=== PATIENT | male | born 1950 | race Caucasian/White ===

== ENCOUNTER 2016-12-04 10:08 | Inpatient (IN) | payer OTHER, MEDICARE ==
--- NOTE | 2016-12-04 10:49 | PDOC ---
History of Present Illness - History of Present Illness Initial Comments: 12/04/16 11:18 The patient is a 66 year old male, with a significant past medical history of hypertension, diabetes (reportedly takes pills), hyperlipidemia, and psoriasis , who presents to the emergency department with progressive onset of orthopnea and exertional dyspnea since yesterday. The patient reports he can not take deep breaths. He reports his dyspnea is worse at night when lying flat and alleviated slightly with sitting upright. He states his orthopnea keeps me up at night. He denies cough. He also reports bilateral lower extremity swelling for the past 2 months and reportedly took water pills which were prescribed by his PCP, Dr. De Anda. Secondarily, he reports feeling bloated to the upper abdominal region. He also reports some mild nausea. He denies chest pain, headache and dizziness. He denies fever, chills, vomit, diarrhea and constipation. He denies dysuria, frequency, urgency and hematuria. Allergies: penicillins Past surgical history: inguinal hernia repair Social history: nonsmoker. PCP: Dr. De Anda <Alejandra Hartman - Last Filed: 12/04/16 11:35> <Lenka Dempsey - Last Filed: 12/04/16 13:46> - General Chief Complaint: Shortness of Breath Stated Complaint: SOB Time Seen by Provider: 12/04/16 10:31 Past History <Alejandra Hartman - Last Filed: 12/04/16 11:35> - Past Medical History Diabetes: Yes HTN: Yes - Surgical History Abdominal Surgery: Yes (hernia repair) - Suicide/Smoking/Psychosocial Hx Smoking History: Never smoked Information on smoking cessation initiated: No Hx Alcohol Use: No Drug/Substance Use Hx: No Substance Use Type: None <Lenka Dempsey - Last Filed: 12/04/16 13:46> - Past Medical History Allergies/Adverse Reactions: Allergies Allergy/AdvReac Type Severity Reaction Status Date / Time Penicillins Allergy Verified 12/04/16 10:19 Home Medications: Ambulatory Orders Glyburide/Metformin HCl [Glyburide-Metformin 5-500 mg] 1 each PO BID 12/04/16 Lisinopril 10 mg PO DAILY 12/04/16 Oxybutynin Chloride [Ditropan Xl] 5 mg PO DAILY 12/04/16 Simvastatin [Zocor -] 20 mg PO HS 12/04/16 Tamsulosin HCl [Flomax] 0.4 mg PO DAILY 12/04/16 Review of Systems - Review of Systems Able to Perform ROS?: Yes Comments:: 12/04/16 11:19 GENERAL/CONSTITUTIONAL: No fever or chills. No weakness. HEAD, EYES, EARS, NOSE AND THROAT: No change in vision. No ear pain or discharge. No sore throat. GASTROINTESTINAL: (+) nausea and upper abdominal bloating, no vomiting, diarrhea or constipation. GENITOURINARY: No dysuria, frequency, or change in urination. CARDIOVASCULAR: No chest pain or shortness of breath. RESPIRATORY: (+) exertional dyspnea, orthopnea, No cough, wheezing, or hemoptysis. MUSCULOSKELETAL: (+) lower extremity edema. No joint or muscle pain. No neck or back pain. SKIN: No rash NEUROLOGIC: No headache, vertigo, loss of consciousness, or change in strength/ sensation. ENDOCRINE: No increased thirst. No abnormal weight change. HEMATOLOGIC/LYMPHATIC: No anemia, easy bleeding, or history of blood clots. ALLERGIC/IMMUNOLOGIC: No hives or skin allergy. <Alejandra Hartman - Last Filed: 12/04/16 11:35> *Physical Exam - Vital Signs Last Vital Signs Temp Pulse Resp BP Pulse Ox 98.4 F 109 H 19 158/102 94 L 12/04/16 10:16 12/04/16 10:16 12/04/16 10:16 12/04/16 10:16 12/04/16 10:16 - Physical Exam Comments: 12/04/16 11:20 Constitutional: Awake, alert, oriented. No acute distress. Head: Normocephalic. Atraumatic Eyes: PERRL. EOMI. Conjunctivae are not pale. ENT: Mucous membranes are moist and intact. Posterior pharynx without exudates or erythema. Uvula midline. Neck: Supple. Full ROM. No lymphadenopathy. Cardiovascular: Regular rate. Regular rhythm. S1, S2 regular. Distal pulses are 2+ and symmetric. Pulmonary/Chest: (+) soft rales. No evidence of respiratory distress. Clear to auscultation bilaterally No wheezing or rhonchi. Abdominal: (+) obese. Soft and non-distended. There is no tenderness. No rebound, guarding or rigidity. No organomegaly. No palpable masses. Good bowel sounds. Back: No CVA tenderness. Musculoskeletal: (+) 2+ pitting edema to bilateral LE. No cyanosis. No clubbing. Full range of motion in all extremities. No calf tenderness. Radial/ pedal pulses are intact and 2+ bilaterally Skin: Skin is warm and dry. No petechiae. No purpura. Neurological: Alert and oriented to person, place, and time. Cranial nerves II -XII are grossly intact. Normal speech. Strength is grossly symmetric. No sensory deficits. Psychiatric: Good eye contact. Normal interaction, affect and behavior. <Alejandra Hartman - Last Filed: 12/04/16 11:35> - Vital Signs Last Vital Signs Temp Pulse Resp BP Pulse Ox 98.4 F 109 H 19 158/102 94 L 12/04/16 10:16 12/04/16 10:16 12/04/16 10:16 12/04/16 10:16 12/04/16 10:16 <Lenka Dempsey - Last Filed: 12/04/16 13:46> Heart Score/ECG Review - ECG Intrepretation Comment:: 12/04/16 11:48 sinus at 95, LBBB, no acute st/t wave findings <Lenka Dempsey - Last Filed: 12/04/16 13:46> ED Treatment Course - LABORATORY CBC & Chemistry Diagram: 12/04/16 11:30 12/04/16 11:38 <Lenka Dempsey - Last Filed: 12/04/16 13:46> Medical Decision Making - Medical Decision Making 12/04/16 11:15 a/p: 66yo male with sob -PND, orthopnea, LE swelling -suspect new onset chf -labs -monitor -iv lasix -admission -cardio consult 12/04/16 13:46 pt with LBBB on ekg, labs reviewed. case discussed with hospitalist who accepts pt to service. consult placed to cardiology. <Lenka Dempsey - Last Filed: 12/04/16 13:46> *DC/Admit/Observation/Transfer - Attestations Scribe Attestion: 12/04/16 11:20 Documentation prepared by Alejandra Hartman, acting as biomedical engineering internship for Lenka Dempsey MD <Alejandra Hartman - Last Filed: 12/04/16 11:35> - Discharge Dispostion Admit: Yes - Attestations Physician Attestion: 12/04/16 12:36 I, Dr. Lenka Dempsey, DO, attest that this document has been prepared under my direction and personally reviewed by me in its entirety. I further attest, that it accurately reflects all work, treatment, procedures and medical decision -making performed by me. <Lenka Dempsey - Last Filed: 12/04/16 13:46> Diagnosis at time of Disposition: Edema, Orthopnea - Discharge Dispostion Condition at time of disposition: Fair
[2016-12-04] MEDS ORDERED: FUROSEMIDE 40 MG/4 ML INJECTABLE VIAL IVPUSH ONE ×2 (11:12→18:00)
[2016-12-04 11:53] LABS: BASOPHIL 0.8 % (0-2.0); EOSINOPHIL 1.6 % (0-4.5); MCH 29.3 pg (25.7-33.7); MCHC 32.9 g/dl (32.0-35.9); MEAN CELL VOLUME 88.8 fl (80-96); NEUTROPHILS 69.7 % (42.8-82.8); PLATELET COUNT 230 K/MM3 (134-434); RDW 13.2 % (11.9-15.9); WHITE BLOOD COUNT 8.3 K/mm3 (4.0-10.0)
[2016-12-04 12:22] LABS: ALBUMIN 3.2 g/dl (3.4-5.0); ANION GAP 7 (8-16); BILIRUBIN,TOTAL 0.6 mg/dL (0.2-1.0); CALCIUM 8.5 mg/dL (8.5-10.1); CO2 27 mmol/L (21-32); GLUCOSE,RANDOM 196 mg/dL (74-106); SGOT/AST 10 U/L (15-37); SGPT/ALT 24 U/L (12-78); TOT PROT 6.5 g/dl (6.4-8.2)
[2016-12-04 12:24] LABS: ALK PHOS 81 U/L (45-117); CPK 97 IU/L (39-308); TROPONIN I 0.03 ng/ml (0.00-0.05)
[2016-12-04] MEDS ORDERED: FUROSEMIDE 40 MG/4 ML INJECTABLE VIAL ONE (12:24)
--- NOTE | 2016-12-04 13:23 | HP ---
CHIEF COMPLAINT: Shortness of breath. PCP: Dr. De Anda HISTORY OF PRESENT ILLNESS: 66 yo M with a PMHx of HTN , DM2 , who presented to the ER due to progressively worsening SOB. He has had worsening shortness of breath for the past two months which has gotten to the point were he becomes SOB with minimal exertion. He had seen his PCP 3 weeks prior to ER visit and given presumably Lasix but patient discontinued on his own secondary to frequent urination. He also endorses orthopnea (sleeps w/ 3 pillows), and paroxysmal nocturnal dyspnea. 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 He endorses high salt intake. He mentions that he may have had an Echo done before but that was almost 3 years ago. Denies CP,POOLE, Palpitations, abdominal pain, fever, chills, N/V. ER course: * IVP Lasix 40mg. * EKG shows NSR w/ LBBB, unknown prior. * CXR shows pulmonary congestion and pleural effusions. Recent Travel: Denies PAST MEDICAL HISTORY: HTN, NIDDM, HLD, Psoriasis, BPH PAST SURGICAL HISTORY: Hernia repair Social History: Smoking: Denies Alcohol: Occasional Drugs: Denies Family History: Allergies Penicillins Allergy (Verified 12/04/16 10:19) HOME MEDICATIONS: REVIEW OF SYSTEMS CONSTITUTIONAL: Absent: fever, chills, diaphoresis, generalized weakness, malaise, loss of appetite, weight change HEENT: Absent: rhinorrhea, nasal congestion, throat pain, throat swelling, difficulty swallowing, mouth swelling, ear pain, eye pain, visual changes CARDIOVASCULAR: Absent: chest pain, syncope, palpitations, irregular heart rate, lightheadedness , RESPIRATORY: shortness of breath, dyspnea with exertion, orthopnea, Absent: cough, wheezing, stridor, hemoptysis GASTROINTESTINAL: Absent: abdominal pain, abdominal distension, nausea, vomiting, diarrhea, constipation, melena, hematochezia GENITOURINARY: Absent: dysuria, frequency, urgency, hesitancy, hematuria, flank pain, genital pain MUSCULOSKELETAL: Absent: myalgia, arthralgia, joint swelling, back pain, neck pain SKIN: Absent: rash, itching, pallor HEMATOLOGIC/IMMUNOLOGIC: Absent: easy bleeding, easy bruising, lymphadenopathy, frequent infections ENDOCRINE: Absent: unexplained weight gain, unexplained weight loss, heat intolerance, cold intolerance NEUROLOGIC: Absent: headache, focal weakness or paresthesias, dizziness, unsteady gait, seizure, mental status changes, bladder or bowel incontinence PSYCHIATRIC: Absent: anxiety, depression, suicidal or homicidal ideation, hallucinations. PHYSICAL EXAMINATION GENERAL: AAOx3, NAD HEAD: NC/AT EYES: PERRLA,EOMI sclera anicteric, conjunctiva clear. No lid lag. EARS, NOSE, THROAT: Moist mucous membranes. NECK: supple ,No JVD LUNGS: Fine crackle in bilateral lung alexander, No wheezing or rhonchi. HEART: RRR. no M/G/R ABDOMEN: Soft,obese, mild supra-pubic tenderness, not distended, normoactive bowel sounds, no guarding, no rebound, no masses. UPPER EXTREMITIES: 2+ pulses, warm, well-perfused. No cyanosis. No clubbing. No peripheral edema. LOWER EXTREMITIES: 2+ pulses, warm, well-perfused. No calf tenderness.1+ pitting edema NEUROLOGICAL: Cranial nerves II-XII intact. Normal speech. PSYCHIATRIC: Cooperative. Good eye contact. Appropriate mood and affect. SKIN: Warm, dry, normal turgor, no rashes or lesions noted, normal capillary refill. ASSESSMENT/PLAN: 66 yo M with a PMHx of HTN , DM2 , who presented to the ER due to progressively worsening SOB admitted to telemetry for acute CHF exacerbation. Problem List - Problem (1) CHF (congestive heart failure) Assessment/Plan: * Admit to telemetry * Lasix 40 IV BID * daily weights. * I/O's * Sodium restricted diet * Cardiology consult * Echo pending. (2) HTN (hypertension) Assessment/Plan: * Carvedilol (Coreg -) 3.125 mg PO BID * Lisinopril (Prinivil) 20 mg PO DAILY * Spironolactone (Aldactone -) 25 mg PO DAILY STEPH (3) DM II (diabetes mellitus, type II), controlled Assessment/Plan: * ADA diet * BGM ACHS * ISS ACHS (4) Psoriasis Assessment/Plan: * Quiesent at this time (5) BPH (benign prostatic hyperplasia) Assessment/Plan: * Continue Flomax (6) DVT prophylaxis Assessment/Plan: * Lovenox 40mg SQ daily. Visit type - Emergency Visit Emergency Visit: Yes ED Registration Date: 12/04/16 Care time: The patient presented to the Emergency Department on the above date and was hospitalized for further evaluation of their emergent condition. - New Patient This patient is new to me today: Yes Date on this admission: 12/05/16 - Critical Care Critical Care patient: No
--- NOTE | 2016-12-04 14:35 | HP ---
<Lizet Martinez - Last Filed: 12/04/16 16:23> CHIEF COMPLAINT: Shortness of Breath HISTORY OF PRESENT ILLNESS: Patient is a 66yo M with a PMHx of HTN (on Lisinopril), DM2 (on metformin/ glyburide), who presented to the ER due to progressively worsening SOB. For the past 2 months, patient noted his SOB has gotten worse to the point of him getting SOB with ordinary activity (putting on clothes). He also endorses orthopnea (sleeps w/ 3 pillows), and paroxysmal nocturnal dyspnea. He denies cough, fevers, chills, viral URI symptoms. He denies CP, palpitations. He states he went to his PMD's office who prescribed him a "water pill" which made him feel better, but he stopped taking it due to frequent urination. He has no recorded history of CHF, but states a prior echocardiogram 3 years ago was "normal". The patient endorses compliance with his BP meds. In the ER the patient was afebrile, with elevated BP in 150s, tachy in the 100s , O2 of 94 on RA. He was found to have crackles on lung exam and was given IVP Lasix 40mg. He has since been urinating and has felt better. EKG shows NSR w/ LBBB, unknown prior. He does not have SOB on rest. CXR shows pulmonary congestion and pleural effusions. Recent Travel: Denies PAST MEDICAL HISTORY: HTN, NIDDM, HLD, Psoriasis, BPH PAST SURGICAL HISTORY: Hernia repair Social History: Smoking: Denies Alcohol: Occasional Drugs: Denies Allergies Penicillins Allergy (Verified 12/04/16 10:19) HOME MEDICATIONS: Home Medications Medication Instructions Recorded Glyburide/Metformin HCl 1 each PO BID 12/04/16 [Glyburide-Metformin 5-500 mg] Lisinopril 10 mg PO DAILY 12/04/16 Oxybutynin Chloride [Ditropan Xl] 5 mg PO DAILY 12/04/16 Simvastatin [Zocor -] 20 mg PO HS 12/04/16 Tamsulosin HCl [Flomax] 0.4 mg PO DAILY 12/04/16 REVIEW OF SYSTEMS CONSTITUTIONAL: Absent: fever, chills, diaphoresis, generalized weakness, malaise, loss of appetite, weight change HEENT: Absent: rhinorrhea, nasal congestion, throat pain, throat swelling, difficulty swallowing, mouth swelling, ear pain, eye pain, visual changes CARDIOVASCULAR: Absent: chest pain, syncope, palpitations, irregular heart rate, lightheadedness , peripheral edema RESPIRATORY: Absent: cough, shortness of breath, wheezing, stridor, hemoptysis Present: dyspnea on exertion, orthopnea GASTROINTESTINAL: Absent: abdominal pain, abdominal distension, nausea, vomiting, diarrhea, constipation, melena, hematochezia GENITOURINARY: Absent: dysuria, frequency, urgency, hesitancy, hematuria, flank pain, genital pain MUSCULOSKELETAL: Absent: myalgia, arthralgia, joint swelling, back pain, neck pain SKIN: Absent: rash, itching, pallor HEMATOLOGIC/IMMUNOLOGIC: Absent: easy bleeding, easy bruising, lymphadenopathy, frequent infections ENDOCRINE: Absent: unexplained weight gain, unexplained weight loss, heat intolerance, cold intolerance NEUROLOGIC: Absent: headache, focal weakness or paresthesias, dizziness, unsteady gait, seizure, mental status changes, bladder or bowel incontinence PSYCHIATRIC: Absent: anxiety, depression, suicidal or homicidal ideation, hallucinations. Vital Signs Temperature 98.4 F 12/04/16 10:16 Pulse Rate 92 H 12/04/16 12:20 Respiratory Rate 18 12/04/16 12:20 Blood Pressure 151/96 12/04/16 12:20 O2 Sat by Pulse Oximetry (%) 94 L 12/04/16 12:20 PHYSICAL EXAMINATION GEN: AAOx3, NAD, Lying in bed comfortably, no SOB at rest HEENT: PERRLA, EOMi, no cervical LAD, no JVD noted on exam CV: S1, S2, RRR, no murmurs LUNG: interspersed crackles throughout lungs, good inspiratory effort ABD: Obese, soft, discomfort in suprapubic region MSK: +1 bilateral pedal edema, no erythema, normal ROM, psoriatic lesions on dorsum of fingers NEURO: Decreased sensation in BLLE, no MSK deficits Laboratory Last Values WBC 8.3 K/mm3 (4.0-10.0) 12/04/16 11:30 RBC 5.29 M/mm3 (4.00-5.60) 12/04/16 11:30 Hgb 15.5 GM/dL (11.7-16.9) 12/04/16 11:30 Hct 47.0 % (35.4-49) 12/04/16 11:30 MCV 88.8 fl (80-96) 12/04/16 11:30 MCH 29.3 pg (25.7-33.7) 12/04/16 11:30 MCHC 32.9 g/dl (32.0-35.9) 12/04/16 11:30 RDW 13.2 % (11.9-15.9) 12/04/16 11:30 Plt Count 230 K/MM3 (134-434) 12/04/16 11:30 MPV 10.0 fl (7.5-11.1) 12/04/16 11:30 Neutrophils % 69.7 % (42.8-82.8) 12/04/16 11:30 Lymphocytes % 21.4 % (8-40) 12/04/16 11:30 Monocytes % 6.5 % (3.8-10.2) 12/04/16 11:30 Eosinophils % 1.6 % (0-4.5) 12/04/16 11:30 Basophils % 0.8 % (0-2.0) 12/04/16 11:30 Sodium 142 mmol/L (136-145) 12/04/16 11:38 Potassium 4.4 mmol/L (3.5-5.1) 12/04/16 11:38 Chloride 108 mmol/L (98-107) H 12/04/16 11:38 Carbon Dioxide 27 mmol/L (21-32) 12/04/16 11:38 Anion Gap 7 (8-16) L 12/04/16 11:38 BUN 13 mg/dL (7-18) 12/04/16 11:38 Creatinine 1.0 mg/dL (0.7-1.3) 12/04/16 11:38 Creat Clearance w eGFR > 60 (>60) 12/04/16 11:38 Random Glucose 196 mg/dL (74-106) H 12/04/16 11:38 Calcium 8.5 mg/dL (8.5-10.1) 12/04/16 11:38 Magnesium 2.0 mg/dL (1.8-2.4) 12/04/16 11:38 Total Bilirubin 0.6 mg/dL (0.2-1.0) 12/04/16 11:38 AST 10 U/L (15-37) L 12/04/16 11:38 ALT 24 U/L (12-78) 12/04/16 11:38 Alkaline Phosphatase 81 U/L (45-117) 12/04/16 11:38 Creatine Kinase 97 IU/L (39-308) 12/04/16 11:38 Troponin I 0.03 ng/ml (0.00-0.05) 12/04/16 11:38 B-Natriuretic Peptide 755.61 pg/ml (5-125) H 12/04/16 11:30 Total Protein 6.5 g/dl (6.4-8.2) 12/04/16 11:38 Albumin 3.2 g/dl (3.4-5.0) L 12/04/16 11:38 Active Medications Generic Name Dose Route Start Last Admin Trade Name Freq PRN Reason Stop Dose Admin Enoxaparin Sodium 40 mg 12/05/16 10:00 Lovenox - SQ DAILY [facility] Furosemide 40 mg 12/05/16 06:00 Lasix Injection - IVPUSH BID@0600,1400 STEPH Furosemide 40 mg 12/04/16 18:00 Lasix Injection - IVPUSH 12/04/16 18:01 ONCE ONE Influenza Virus Vaccine Quadrival 60 mcg 12/04/16 15:39 Flulaval Quad [id number] IM 12/04/16 15:40 .ONCE ONE Insulin Aspart 0 vial 12/04/16 16:30 Novolog Vial Sliding Scale - SQ TIDAC [facility] Protocol Lisinopril 10 mg 12/05/16 10:00 Prinivil PO DAILY [facility] Non-Formulary Medication 5 mg 12/05/16 10:00 Oxybutynin Chloride [Ditropan Xl] PO DAILY [facility] Non-Formulary Medication 20 mg 12/05/16 10:00 Simvastatin PO DAILY [facility] Pneumococcal 13-Valent Conj Vacc 0.5 ml 12/04/16 15:39 Prevnar 13 Syringe - IM 12/04/16 15:40 .ONCE ONE Tamsulosin HCl 0.4 mg 12/05/16 10:00 Flomax - PO DAILY [facility] ASSESSMENT/PLAN: Patient is a 66yo M with a PMHx of HTN (on Lisinopril), DM2 (on metformin/ glyburide), who presented to the ER due to progressively worsening SOB, likely due to new onset CHF exacerbation # New Onset CHF Exacerbation - 2/2 high salt diet, HTN, pt states prior echo 3 years ago was normal - IV Lasix 40mg BID, Echo, strict I&O, daily weights, clarify w/ PMD about echo and "water pill", nutrition consult, TSH, Cardiology on board, unlikely ACS but will trend troponin # Mild Suprapubic Tenderness - could be 2/2 bladder distension from Lasix + BPH - Bladder scan to r/o retention, if >200 will insert boateng, also sent UA to r /o infectious etiology # Hx of HTN - Continue Lisinopril 10mg # Hx of DM2 - ISS + BGMs ACHS, hold home oral meds, A1c ordered for tmrw # Hx of HLD - Continue statin, lipid profile # Hx of BPH - Continue flomax # Hx of Psoriasis - On no meds, topical cream if needed # Hx of Overactive Bladder - Continue oxybutynin # FEN - No fluids, elect wnl, renal diet # PPX - Lovenox SQ daily (normal renal function), PT ordered # Dispo - Monitor on tele, await results of echo, continue diuresis d/w Dr. Marcus and Dr. Kylah Martinez MD - PGY1 Internal Medicine Visit type - Emergency Visit Emergency Visit: Yes ED Registration Date: 12/04/16 Care time: The patient presented to the Emergency Department on the above date and was hospitalized for further evaluation of their emergent condition. - New Patient This patient is new to me today: Yes Date on this admission: 12/04/16 - Critical Care Critical Care patient: No <Ángel Marcus - Last Filed: 12/04/16 17:16> CHIEF COMPLAINT: PCP: HISTORY OF PRESENT ILLNESS: ER course was notable for: (1) (2) (3) Recent Travel: PAST MEDICAL HISTORY: PAST SURGICAL HISTORY: Social History: Smoking: Alcohol: Drugs: Family History: Allergies Penicillins Allergy (Verified 12/04/16 10:19) HOME MEDICATIONS: Home Medications Medication Instructions Recorded Glyburide/Metformin HCl 1 each PO BID 12/04/16 [Glyburide-Metformin 5-500 mg] Lisinopril 10 mg PO DAILY 12/04/16 Oxybutynin Chloride [Ditropan Xl] 5 mg PO DAILY 12/04/16 Simvastatin [Zocor -] 20 mg PO DAILY 12/04/16 Tamsulosin HCl [Flomax] 0.4 mg PO DAILY 12/04/16 REVIEW OF SYSTEMS CONSTITUTIONAL: Absent: fever, chills, diaphoresis, generalized weakness, malaise, loss of appetite, weight change HEENT: Absent: rhinorrhea, nasal congestion, throat pain, throat swelling, difficulty swallowing, mouth swelling, ear pain, eye pain, visual changes CARDIOVASCULAR: Absent: chest pain, syncope, palpitations, irregular heart rate, lightheadedness , peripheral edema RESPIRATORY: Absent: cough, shortness of breath, dyspnea with exertion, orthopnea, wheezing, stridor, hemoptysis GASTROINTESTINAL: Absent: abdominal pain, abdominal distension, nausea, vomiting, diarrhea, constipation, melena, hematochezia GENITOURINARY: Absent: dysuria, frequency, urgency, hesitancy, hematuria, flank pain, genital pain MUSCULOSKELETAL: Absent: myalgia, arthralgia, joint swelling, back pain, neck pain SKIN: Absent: rash, itching, pallor HEMATOLOGIC/IMMUNOLOGIC: Absent: easy bleeding, easy bruising, lymphadenopathy, frequent infections ENDOCRINE: Absent: unexplained weight gain, unexplained weight loss, heat intolerance, cold intolerance NEUROLOGIC: Absent: headache, focal weakness or paresthesias, dizziness, unsteady gait, seizure, mental status changes, bladder or bowel incontinence PSYCHIATRIC: Absent: anxiety, depression, suicidal or homicidal ideation, hallucinations. PHYSICAL EXAMINATION Vital Signs - 24 hr 12/04/16 14:15 Pulse Rate 81 Respiratory 18 Rate Blood Pressure 149/97 O2 Sat by Pulse 97 Oximetry (%) GENERAL: Awake, alert, and fully oriented, in no acute distress. HEAD: Normal with no signs of trauma. EYES: Pupils equal, round and reactive to light, extraocular movements intact, sclera anicteric, conjunctiva clear. No lid lag. EARS, NOSE, THROAT: Ears normal, nares patent, oropharynx clear without exudates. Moist mucous membranes. NECK: Normal range of motion, supple without lymphadenopathy, JVD, or masses. LUNGS: Breath sounds equal, clear to auscultation bilaterally. No wheezes, and no crackles. No accessory muscle use. HEART: Regular rate and rhythm, normal S1 and S2 without murmur, rub or gallop. ABDOMEN: Soft, nontender, not distended, normoactive bowel sounds, no guarding, no rebound, no masses. No hepatomegaly or splenomegaly. MUSCULOSKELETAL: Normal range of motion at all joints. No bony deformities or tenderness. No CVA tenderness. UPPER EXTREMITIES: 2+ pulses, warm, well-perfused. No cyanosis. No clubbing. No peripheral edema. LOWER EXTREMITIES: 2+ pulses, warm, well-perfused. No calf tenderness. No peripheral edema. NEUROLOGICAL: Cranial nerves II-XII intact. Normal speech. Normal gait. PSYCHIATRIC: Cooperative. Good eye contact. Appropriate mood and affect. SKIN: Warm, dry, normal turgor, no rashes or lesions noted, normal capillary refill. Laboratory Results - last 24 hr 12/04/16 14:59 Urine Color Straw Urine Appearance Clear Urine pH 5.0 Urine Protein Negative Urine Glucose (UA) 1+ H Urine Ketones Negative Urine Blood Negative Urine Nitrite Negative Urine Bilirubin Negative Urine Urobilinogen Negative ASSESSMENT/PLAN:
--- NOTE | 2016-12-04 14:48 | CON.CARD ---
Consult Consult Specialty:: cardiology Reason for Consultation:: dyspnea; PND - History of Present Illness History of Present Illness: The patient is a 66 year old male, with a significant past medical history of hypertension, diabetes (reportedly takes pills), hyperlipidemia, obesity, and psoriasis, who presents to the emergency department with progressive onset of orthopnea and exertional dyspnea since yesterday. The patient reports he can not take deep breaths. He reports his dyspnea is worse at night when lying flat and alleviated slightly with sitting upright. He states his orthopnea keeps me up at night. He denies cough. He also reports bilateral lower extremity swelling for the past 2 months and reportedly took water pills which were prescribed by his PCP, Dr. De Anda. Secondarily, he reports feeling bloated in the upper abdominal region. He also reports some mild nausea. He denies chest pain, headache and dizziness. He denies fever, chills, vomit, diarrhea and constipation. He denies dysuria, frequency, urgency and hematuria. Allergies: penicillins Past surgical history: inguinal hernia repair Social history: nonsmoker. PCP: Dr. De Anda - History Source History Provided By: Patient, Family Member, Medical Record Limitations to Obtaining History: No Limitations - Past Medical History Cardio/Vascular: Yes: HTN, Hyperlipdemia Pulmonary: No: Asthma Psych: Yes: Anxiety - Past Surgical History Past Surgical History: Yes: None - Alcohol/Substance Use Hx Alcohol Use: No - Smoking History Smoking history: Never smoked Home Medications - Allergies Allergies/Adverse Reactions: Allergies Allergy/AdvReac Type Severity Reaction Status Date / Time Penicillins Allergy Verified 12/04/16 10:19 - Home Medications Home Medications: Ambulatory Orders Glyburide/Metformin HCl [Glyburide-Metformin 5-500 mg] 1 each PO BID 12/04/16 Lisinopril 10 mg PO DAILY 12/04/16 Oxybutynin Chloride [Ditropan Xl] 5 mg PO DAILY 12/04/16 Simvastatin [Zocor -] 20 mg PO DAILY 12/04/16 Tamsulosin HCl [Flomax] 0.4 mg PO DAILY 12/04/16 Family Disease History - Family Disease History Family History: Denies Review of Systems - Review of Systems Constitutional: reports: No Symptoms Eyes: reports: No Symptoms HENT: reports: No Symptoms Neck: reports: No Symptoms Cardiovascular: reports: Shortness of Breath Respiratory: reports: SOB Gastrointestinal: reports: No Symptoms Genitourinary: reports: No Symptoms Breasts: reports: No Symptoms Reported Musculoskeletal: reports: Back Pain, Muscle Weakness Integumentary: reports: No Symptoms Neurological: reports: Weakness Endocrine: reports: No Symptoms Psychiatric: reports: Anxiety - Risk Factors Known Risk Factors: Yes: Age, Hypercholesterolemia, Hypertension, Physical Inactivity Vital Signs: Vital Signs Temperature 98.4 F 12/04/16 10:16 Pulse Rate 92 H 12/04/16 12:20 Respiratory Rate 18 12/04/16 12:20 Blood Pressure 151/96 12/04/16 12:20 O2 Sat by Pulse Oximetry (%) 94 L 12/04/16 12:20 Constitutional: Yes: Obese Eyes: Yes: WNL HENT: Yes: WNL Neck: Yes: WNL Respiratory: Yes: Diminished Gastrointestinal: Yes: Soft, Abdomen, Obese Renal/: No: Anuria Cardiovascular: Yes: Regular Rate and Rhythm JVD: Yes Carotid Bruit: No PMI: Displaced Heart Sounds: Yes: S1, Split S2 Murmur: Yes: Systolic Murmur, Grade 2 Musculoskeletal: Yes: Muscle Weakness Edema: Yes Edema: LLE: 1+, RLE: 1+ Peripheral Pulses WNL: Yes Integumentary: Yes: WNL Neurological: Yes: Alert, Oriented, Weakness Psychiatric: Yes: WNL - Other Data Echo: Pending Imaging - Results Chest X-ray: Image Reviewed (marked CHF) EKG: Image Reviewed (NSR: LBBB) Problem List - Problems (1) Edema Code(s): R60.9 - EDEMA, UNSPECIFIED (2) Orthopnea Code(s): R06.01 - ORTHOPNEA (3) CHF (congestive heart failure) Assessment/Plan: + JVD; orthopnea LBBB F/u ECHO for LVEF (enlarged heart, with CHF on CXR). If systolic dysfunction, use ACEI, beta blockers, furosemide, and start Aldactone at a later date. F/u BUn/Cr, daily weight, Is and Os, electrolytes. TNI 0.03; f/u serially. Coronary artery evaluation when CHF has been stabilized. Code(s): I50.9 - HEART FAILURE, UNSPECIFIED
[2016-12-04 15:34] LABS: URINE APPEARANCE CLEAR; URINE BILIRUBIN NEGATIVE (NEGATIVE); URINE BLOOD NEGATIVE (NEGATIVE); URINE COLOR STRAW; URINE GLUCOSE (UA) 1+ (NEGATIVE); URINE KETONE NEGATIVE (NEGATIVE); URINE NITRITE NEGATIVE (NEGATIVE); URINE PROTEIN NEGATIVE (NEGATIVE); URINE UROBILINOGEN NEGATIVE mg/dL (0.2-1.0)
[2016-12-04 15:39] VITALS: BMI 31.8
[2016-12-04] MEDS ORDERED: FLU VACCINE QUAD 60 MCG/0.5 ML (MDV 17-18) IM ONE (15:39)
[2016-12-04] MEDS ORDERED: PNEUMOC 13-VAL CONJ-DIP CRM/PF 0.5 ML DISP.SYRIN IM ONE (15:39)
--- NOTE | 2016-12-04 15:55 | PN ---
Teaching Attending Note Name of Resident: Lizet Martinez ATTENDING PHYSICIAN STATEMENT I saw and evaluated the patient. I reviewed the resident's note and discussed the case with the resident. I agree with the resident's findings and plan as documented. SUBJECTIVE: Patient seen and examined. Breathing much improved. Reports symptoms gradually over last few weeks, prescribed 'water pill' by PCP which he stopped about 3 weeks ago. Fairly active and walked a lot before that, no complaints of exertional chest pain, jaw or arm pain. NO c/o chest pain, arm or jaw pain over the last few weeks. No prior stress test, but ?Echo 3 years ago, results unavailable. Home SBP reportedly 130s-140s. Fasting blood sugars reportedly poorly controlled, 200s, last medication change around 3 weeks ago. No compliant with low salt diet or fluid restriction. OBJECTIVE: Vital Signs (72 hours) 12/04/16 12/04/16 12/04/16 10:16 10:55 12:20 Temperature 98.4 F Pulse Rate 109 H Pulse Rate [ 92 H Apical] Respiratory 19 18 Rate Blood Pressure 158/102 Blood Pressure 151/96 [Right Arm] O2 Sat by Pulse 94 L 95 94 L Oximetry (%) 12/04/16 14:15 Temperature Pulse Rate 81 Pulse Rate [ Apical] Respiratory 18 Rate Blood Pressure 149/97 Blood Pressure [Right Arm] O2 Sat by Pulse 97 Oximetry (%) Intake & Output 12/01/16 12/02/16 12/03/16 12/04/16 23:59 23:59 23:59 23:59 Weight 219 lb 4 oz Physical Examination: HEENT - atraumatic, normocephalic, EOMI, MART, no pallor Neck - soft, supple, unable to visualize JVD given body habitus CVS - S1S2 regular, unable to appreciate any rub or murmur Chest - occasional scattered rales, good air entry bilaterally, no wheezing Abdomen - soft, obese, non tender throughout, positive bowel sounds, no voluntary or involuntary guarding or rigidity, no masses or hepatosplenomegaly appreciated, no suprapubic or CVA tenderness noted Extremities - lower extremities 1+ pitting edema, positive pulses bilaterally Skin - normal turgor, no rashes or lesions on gross exam Neurological - AAOX3, power 5/5, sensation intact to light touch, no focal deficits noted Laboratory Results - last 24 hr 12/04/16 12/04/16 12/04/16 11:30 11:30 11:38 WBC 8.3 RBC 5.29 Hgb 15.5 Hct 47.0 MCV 88.8 MCH 29.3 MCHC 32.9 RDW 13.2 Plt Count 230 MPV 10.0 Neutrophils % 69.7 Lymphocytes % 21.4 Monocytes % 6.5 Eosinophils % 1.6 Basophils % 0.8 Sodium 142 Potassium 4.4 Chloride 108 H Carbon Dioxide 27 Anion Gap 7 L BUN 13 Creatinine 1.0 Creat Clearance w eGFR > 60 Random Glucose 196 H Calcium 8.5 Magnesium 2.0 Total Bilirubin 0.6 AST 10 L ALT 24 Alkaline Phosphatase 81 Creatine Kinase 97 Troponin I 0.03 B-Natriuretic Peptide 755.61 H Total Protein 6.5 Albumin 3.2 L All Active Problems Edema (Acute) Orthopnea (Acute) Current Medications Generic Name Dose Route Start Last Admin Trade Name Freq PRN Reason Stop Dose Admin Enoxaparin Sodium 40 mg 12/05/16 10:00 Lovenox - SQ DAILY [facility] Furosemide 40 mg 12/05/16 06:00 Lasix Injection - IVPUSH BID@0600,1400 [facility] Furosemide 40 mg 12/04/16 18:00 Lasix Injection - IVPUSH 12/04/16 18:01 ONCE ONE Influenza Virus Vaccine Quadrival 60 mcg 12/04/16 15:39 Flulaval Quad [id number] IM 12/04/16 15:40 .ONCE ONE Insulin Aspart 0 vial 12/04/16 16:30 Novolog Vial Sliding Scale - SQ TIDAC [facility] Protocol Lisinopril 10 mg 12/05/16 10:00 Prinivil PO DAILY [facility] Non-Formulary Medication 5 mg 12/05/16 10:00 Oxybutynin Chloride [Ditropan Xl] PO DAILY [facility] Non-Formulary Medication 20 mg 12/05/16 10:00 Simvastatin PO DAILY [facility] Pneumococcal 13-Valent Conj Vacc 0.5 ml 12/04/16 15:39 Prevnar 13 Syringe - IM 12/04/16 15:40 .ONCE ONE Tamsulosin HCl 0.4 mg 12/05/16 10:00 Flomax - PO DAILY [facility] CXr - CHF EKG - LBBB (unchanged from 08/2016) ASSESSMENT AND PLAN: 66 yom with PMHx of HTN, NIDDM, BPH admitted with new onset CHF. - New onset CHF- Systolic vs diastolic. Lasix 40 mg IV BID, titrate based on clinical response and renal function. Daily weights. 2D echo, Nutrition counseling for CHF. Strict I/Os. BP Control. Cardiology consult. Serial electrolytes. Telemetry, repeat troponins, however, unlikely to be ACS given gradual presentation and absence of concerning symptoms. -HTN lasix as above, home lisinopril after confirming the dose, monitor renal function. -NIDDM seems poorly controlled, check A1c, hold oral hypoglycemics for tonight, ISS, diabetic diet, resume based on blood sugar readings. -HLD statin -BPH Concerns for mild suprapubic tenderness on admission, currently none. Bladder scan, boateng accordingly. COntnue FLomax. Resume oxybutynin after confirming dose. -no indication for GIPPX -DVTPPx with lovenox -DIsposition - anticipate atleast 2 midnight given need for IV diuresis, close hemodynamic monitoring, cardiology input and further management. Plan discussed with patient and daughter at bedside in detail, all questions answered. Total admit time spent 65 min.
[2016-12-04] MEDS: INSULIN SLIDING SCALE (NOVOLOG) 1 VIAL SQ SCH (18:04)
[2016-12-04 18:52] LABS: CHOLESTEROL 162 mg/dL (50-200)
[2016-12-04 18:58] LABS: TROPONIN I 0.06 ng/ml (0.00-0.05)
--- NOTE | 2016-12-04 20:18 | EKG ---
Test Reason : Blood Pressure : / mmHG Vent. Rate : 095 BPM Atrial Rate : 095 BPM P-R Int : 168 ms QRS Dur : 144 ms QT Int : 396 ms P-R-T Axes : 044 -02 118 degrees QTc Int : 497 ms NORMAL SINUS RHYTHM LEFT BUNDLE BRANCH BLOCK ABNORMAL ECG WHEN COMPARED WITH ECG OF 29-AUG-2016 14:03, T WAVE AMPLITUDE HAS INCREASED IN ANTERIOR LEADS T WAVE INVERSION MORE EVIDENT IN LATERAL LEADS CLINICAL CORRELATION IS RECOMMENDED Confirmed by ANDREW NUÑEZ MD ([id number] on 12/04/2016 8:17:47 PM Referred By: Confirmed By:ANDREW NUÑEZ MD
[2016-12-04 20:45] LABS: URINE LEUK ESTERASE Negative (NEGATIVE)
[2016-12-04 23:50] LABS: TROPONIN I 0.06 ng/ml (0.00-0.05)
[2016-12-05] MEDS: FUROSEMIDE 40 MG/4 ML INJECTABLE VIAL IVPUSH SCH ×2 (05:48→13:54)
[2016-12-05] MEDS ORDERED: FUROSEMIDE 40 MG TABLET (FP) PO SCH ×2 (06:00→10:00)
[2016-12-05] MEDS: INSULIN SLIDING SCALE (NOVOLOG) 1 VIAL SQ SCH ×3 (06:03→17:06)
[2016-12-05 07:05] LABS: MCH 29.4 pg (25.7-33.7); MCHC 33.3 g/dl (32.0-35.9); MEAN CELL VOLUME 88.4 fl (80-96); PLATELET COUNT 231 K/MM3 (134-434); RDW 13.2 % (11.9-15.9); WHITE BLOOD COUNT 8.5 K/mm3 (4.0-10.0)
[2016-12-05 07:30] LABS: ANION GAP 12 (8-16); CALCIUM 8.9 mg/dL (8.5-10.1); CO2 28 mmol/L (21-32); GLUCOSE,RANDOM 164 mg/dL (74-106)
[2016-12-05 07:46] LABS: MAGNESIUM 1.8 mg/dL (1.8-2.4); PHOSPHOROUS 3.4 mg/dL (2.5-4.9)
--- NOTE | 2016-12-05 08:48 | PN ---
Physical Exam: SUBJECTIVE: Patient seen and examined. Doing much better this AM. States hes lost 9 lbs overnight. Urinating well, no issues. No CP, fevers, chills, SOB. OBJECTIVE: Vital Signs Period Temp Pulse Resp BP Sys/[place]aman Pulse Ox Last 24 Hr 98 F-98.9 F 81-86 18-20 129-158/75-97 97-98 GEN: AAOx3, NAD, Lying in bed comfortably, no SOB at rest HEENT: PERRLA, EOMi, no cervical LAD, no JVD noted on exam CV: S1, S2, RRR, no murmurs LUNG: CTABL ABD: Obese, soft, discomfort in suprapubic region MSK: +1 bilateral pedal edema, no erythema, normal ROM, psoriatic lesions on dorsum of fingers NEURO: Decreased sensation in BLLE, no MSK deficits Laboratory Results - last 24 hr 12/04/16 12/04/16 12/04/16 14:59 17:00 17:00 WBC RBC Hgb Hct MCV MCH MCHC RDW Plt Count MPV Sodium Potassium Chloride Carbon Dioxide Anion Gap BUN Creatinine POC Glucometer Random Glucose Calcium Phosphorus Magnesium Creatine Kinase 85 Troponin I 0.06 H D B-Natriuretic Peptide Triglycerides Cholesterol Total LDL Cholesterol HDL Cholesterol TSH 2.42 Urine Color Straw Urine Appearance Clear Urine pH 5.0 Ur Specific [place] <= 1.005 Urine Protein Negative Urine Glucose (UA) 1+ H Urine Ketones Negative Urine Blood Negative Urine Nitrite Negative Urine Bilirubin Negative Urine Urobilinogen Negative Ur Leukocyte Esterase Negative 12/04/16 12/04/16 12/04/16 17:00 17:45 23:00 WBC RBC Hgb Hct MCV MCH MCHC RDW Plt Count MPV Sodium Potassium Chloride Carbon Dioxide Anion Gap BUN Creatinine POC Glucometer 172 Random Glucose Calcium Phosphorus Magnesium Creatine Kinase 91 Troponin I 0.06 H B-Natriuretic Peptide Triglycerides 144 Cholesterol 162 Total LDL Cholesterol 102 H HDL Cholesterol 50 TSH Urine Color Urine Appearance Urine pH Ur Specific [place] Urine Protein Urine Glucose (UA) Urine Ketones Urine Blood Urine Nitrite Urine Bilirubin Urine Urobilinogen Ur Leukocyte Esterase 12/05/16 12/05/16 12/05/16 05:46 06:00 06:40 WBC 8.5 RBC 5.29 Hgb 15.6 Hct 46.8 MCV 88.4 MCH 29.4 MCHC 33.3 RDW 13.2 Plt Count 231 MPV 10.0 Sodium Potassium Chloride Carbon Dioxide Anion Gap BUN Creatinine POC Glucometer 155 Random Glucose Calcium Phosphorus 3.4 Magnesium 1.8 Creatine Kinase Troponin I B-Natriuretic Peptide 1049.81 H Triglycerides Cholesterol Total LDL Cholesterol HDL Cholesterol TSH Urine Color Urine Appearance Urine pH Ur Specific [place] Urine Protein Urine Glucose (UA) Urine Ketones Urine Blood Urine Nitrite Urine Bilirubin Urine Urobilinogen Ur Leukocyte Esterase 12/05/16 06:40 WBC RBC Hgb Hct MCV MCH MCHC RDW Plt Count MPV Sodium 144 Potassium 3.6 Chloride 104 Carbon Dioxide 28 Anion Gap 12 BUN 16 D Creatinine 1.0 POC Glucometer Random Glucose 164 H Calcium 8.9 Phosphorus Magnesium Creatine Kinase Troponin I B-Natriuretic Peptide Triglycerides Cholesterol Total LDL Cholesterol HDL Cholesterol TSH Urine Color Urine Appearance Urine pH Ur Specific [place] Urine Protein Urine Glucose (UA) Urine Ketones Urine Blood Urine Nitrite Urine Bilirubin Urine Urobilinogen Ur Leukocyte Esterase Active Medications Generic Name Dose Route Start Last Admin Trade Name Freq PRN Reason Stop Dose Admin Aspirin 81 mg 12/05/16 10:45 12/05/16 13:02 Ecotrin - PO 81 mg DAILY [facility] Administration Atorvastatin Calcium 10 mg 12/05/16 10:00 12/05/16 09:57 Lipitor - PO 10 mg DAILY [facility] Administration Carvedilol 3.125 mg 12/05/16 10:45 12/05/16 13:02 Coreg - PO 3.125 mg BID [facility] Administration Enoxaparin Sodium 40 mg 12/05/16 10:00 12/05/16 09:56 Lovenox - SQ 40 mg DAILY [facility] Administration Furosemide 40 mg 12/05/16 06:00 12/05/16 05:48 Lasix Injection - IVPUSH 40 mg BID@0600,1400 [facility] Administration Insulin Aspart 0 vial 12/04/16 16:30 12/05/16 06:03 Novolog Vial Sliding Scale - SQ Not Given TIDAC [facility] Protocol Lisinopril 20 mg 12/05/16 10:45 12/05/16 13:02 Prinivil PO 20 mg DAILY [facility] Administration Non-Formulary Medication 5 mg 12/05/16 10:00 Oxybutynin Chloride [Ditropan Xl] PO DAILY [facility] Spironolactone 25 mg 12/05/16 11:00 12/05/16 13:02 Aldactone - PO 25 mg DAILY [facility] Administration Tamsulosin HCl 0.4 mg 12/05/16 08:30 12/05/16 09:57 Flomax - PO 0.4 mg DAILY@0830 [facility] Administration ASSESSMENT/PLAN: Patient is a 66yo M with a PMHx of HTN (on Lisinopril), DM2 (on metformin/ glyburide), who presented to the ER due to progressively worsening SOB, likely due to new onset CHF exacerbation # New Onset Acute Systolic CHF Exacerbation - 2/2 high salt diet, HTN, pt states prior echo 3 years ago was normal - Echo shows EF 34.6%, local areas of hypo/akinesis, needs cath as per cardio , cont Lasix IV 40mg BID. Will speak to PCP today. Pre/post O2 ordered. - Cath scheduled for [facility] # Hx of HTN - As per cardio, increase Lisinopril to 20mg Qd, added aldactone 25mg QD, added Coreg 3.125 BID # Hx of DM2 - ISS + BGMs ACHS, hold home oral meds, A1c 8.6 # Hx of HLD - Continue statin, added ASA # Hx of BPH - Continue flomax # Hx of Psoriasis - On no meds, topical cream if needed # Hx of Overactive Bladder - Continue oxybutynin # FEN - No fluids, elect wnl, renal diet # PPX - Lovenox SQ daily (normal renal function), ambulating # Dispo - No events on tele, as per cardio, needs cardiac cath Lizet Martinez MD - PGY1 Internal Medicine Visit type - Emergency Visit Emergency Visit: No - New Patient This patient is new to me today: No - Critical Care Critical Care patient: No - Discharge Referral Referred to [facility] No
[2016-12-05] MEDS: ENOXAPARIN NA (PORCINE) 40 MG/0.4 ML DISP.SYRIN SQ SCH (09:56)
[2016-12-05] MEDS: TAMSULOSIN HCL 0.4 MG CAP.ER.24H (FP) PO SCH (09:57)
[2016-12-05] MEDS: ATORVASTATIN CA 10 MG TABLET (FP) PO SCH (09:57)
[2016-12-05] MEDS ORDERED: PATIENT'S OWN MEDICATION (NON-FORMULARY) (Oxybutynin Chloride [Ditropan Xl] 5 MG) PO SCH (10:00)
[2016-12-05] MEDS ORDERED: LISINOPRIL 10 MG TABLET (FP) PO SCH (10:00)
--- NOTE | 2016-12-05 10:18 | PN ---
Progress Note, Physician History of Present Illness: The patient is a 66 year old male, with a significant past medical history of hypertension, diabetes (reportedly takes pills), hyperlipidemia, obesity, and psoriasis, who presents to the emergency department with progressive onset of orthopnea and exertional dyspnea since yesterday. The patient reports he can not take deep breaths. He reports his dyspnea is worse at night when lying flat and alleviated slightly with sitting upright. He states his orthopnea keeps me up at night. He denies cough. He also reports bilateral lower extremity swelling for the past 2 months and reportedly took water pills which were prescribed by his PCP, Dr. De Anda. Secondarily, he reports feeling bloated in the upper abdominal region. He also reports some mild nausea. He denies chest pain, headache and dizziness. He denies fever, chills, vomit, diarrhea and constipation. He denies dysuria, frequency, urgency and hematuria. Allergies: penicillins Past surgical history: inguinal hernia repair Social history: nonsmoker. PCP: Dr. De Anda - Current Medication List Current Medications: Active Medications Atorvastatin Calcium (Lipitor -) 10 mg PO DAILY [facility] Last Admin: 12/05/16 09:57 Dose: 10 mg Enoxaparin Sodium (Lovenox -) 40 mg SQ DAILY [facility] Last Admin: 12/05/16 09:56 Dose: 40 mg Furosemide (Lasix Injection -) 40 mg IVPUSH BID@0600,1400 [facility] Last Admin: 12/05/16 05:48 Dose: 40 mg Insulin Aspart (Novolog Vial Sliding Scale -) 0 vial SQ TIDAC [facility] PRN Reason: Protocol Last Admin: 12/05/16 06:03 Dose: Not Given Lisinopril (Prinivil) 10 mg PO DAILY [facility] Last Admin: 12/05/16 09:57 Dose: 10 mg Non-Formulary Medication (Oxybutynin Chloride [Ditropan Xl]) 5 mg PO DAILY [facility] Tamsulosin HCl (Flomax -) 0.4 mg PO DAILY@0830 [facility] Last Admin: 12/05/16 09:57 Dose: 0.4 mg - Objective Vital Signs: Vital Signs Temperature 98 F 12/05/16 05:54 Pulse Rate 86 12/05/16 05:54 Respiratory Rate 20 12/05/16 05:54 Blood Pressure 158/90 12/05/16 05:54 O2 Sat by Pulse Oximetry (%) 98 12/04/16 21:00 Eyes: Yes: WNL, Conjunctiva Clear, EOM Intact HENT: Yes: WNL, Atraumatic, Normocephalic Neck: Yes: WNL, Supple, Trachea Midline Cardiovascular: Yes: WNL, Regular Rate and Rhythm, JVD Respiratory: Yes: WNL, Regular, CTA Bilaterally Gastrointestinal: Yes: WNL, Normal Bowel Sounds Genitourinary: Yes: WNL Musculoskeletal: Yes: WNL Extremities: Yes: WNL Edema: Yes Integumentary: Yes: WNL Neurological: Yes: WNL, Alert, Oriented ...Motor Strength: WNL Psychiatric: Yes: WNL Labs: CBC, BMP 12/05/16 06:40 12/05/16 06:40 Problem List - Problems (1) CHF (congestive heart failure) Code(s): I50.9 - HEART FAILURE, UNSPECIFIED (2) Edema Code(s): R60.9 - EDEMA, UNSPECIFIED (3) Orthopnea Code(s): R06.01 - ORTHOPNEA Assessment/Plan chf systolic acute lbbb cmp r/o ischemic dm htn hlp non-complience elevated TMI's Plan; cont lasix add coreg, aldacton, increase lisinopril,asa will d/w patient further w/u plan c. cath preferred to evaluate cmp need for revascularization
[2016-12-05] MEDS: LISINOPRIL 20 MG TABLET (FP) PO SCH (13:02)
[2016-12-05] MEDS: SPIRONOLACTONE 25 MG TABLET (FP) PO SCH (13:02)
[2016-12-05] MEDS: ASPIRIN COATED 81 MG TABLET.EC PO SCH (13:02)
[2016-12-05] MEDS: CARVEDILOL 3.125 MG TABLET (FP) PO SCH ×2 (13:02→22:03)
--- NOTE | 2016-12-05 14:33 | PN ---
Teaching Attending Note Name of Resident: Lizet Martinez ATTENDING PHYSICIAN STATEMENT I saw and evaluated the patient. I reviewed the resident's note and discussed the case with the resident. I agree with the resident's findings and plan as documented. SUBJECTIVE: Patient seen and examined. breathing markedly improved. NO further dyspnea, PND , orthopnea. Urinating well. Denies prior h/o exertional chest pain, palpitations, or ischemic work up. OBJECTIVE: Vital Signs Period Temp Pulse Resp BP Sys/Guaman Pulse Ox Last 24 Hr 97.8 F-98.9 F 82-117 0-20 129-158/75-92 92-98 CVS -S1S2 regular Chest - CTAB, no rales or wheezing NEck- unable to visualize JVD given habitus Abdomen - soft, obese, NT, positive bowel sounds extre- improved pedal edema Active Medications Aspirin (Ecotrin -) 81 mg PO DAILY [facility] Last Admin: 12/05/16 13:02 Dose: 81 mg Atorvastatin Calcium (Lipitor -) 10 mg PO DAILY [facility] Last Admin: 12/05/16 09:57 Dose: 10 mg Carvedilol (Coreg -) 3.125 mg PO BID [facility] Last Admin: 12/05/16 13:02 Dose: 3.125 mg Enoxaparin Sodium (Lovenox -) 40 mg SQ DAILY [facility] Last Admin: 12/05/16 09:56 Dose: 40 mg Furosemide (Lasix Injection -) 40 mg IVPUSH BID@0600,1400 [facility] Last Admin: 12/05/16 13:54 Dose: 40 mg Insulin Aspart (Novolog Vial Sliding Scale -) 0 vial SQ TIDAC [facility] PRN Reason: Protocol Last Admin: 12/05/16 13:54 Dose: Not Given Lisinopril (Prinivil) 20 mg PO DAILY [facility] Last Admin: 12/05/16 13:02 Dose: 20 mg Non-Formulary Medication (Oxybutynin Chloride [Ditropan Xl]) 5 mg PO DAILY [facility] Spironolactone (Aldactone -) 25 mg PO DAILY [facility] Last Admin: 12/05/16 13:02 Dose: 25 mg Tamsulosin HCl (Flomax -) 0.4 mg PO DAILY@0830 [facility] Last Admin: 12/05/16 09:57 Dose: 0.4 mg Laboratory Results - last 24 hr 12/04/16 12/04/16 12/04/16 14:59 17:00 17:00 WBC RBC Hgb Hct MCV MCH MCHC RDW Plt Count MPV Sodium Potassium Chloride Carbon Dioxide Anion Gap BUN Creatinine POC Glucometer Random Glucose Hemoglobin A1c % Calcium Phosphorus Magnesium Creatine Kinase 85 Troponin I 0.06 H D B-Natriuretic Peptide Triglycerides Cholesterol Total LDL Cholesterol HDL Cholesterol TSH 2.42 Urine Color Straw Urine Appearance Clear Urine pH 5.0 Ur Specific [place] <= 1.005 Urine Protein Negative Urine Glucose (UA) 1+ H Urine Ketones Negative Urine Blood Negative Urine Nitrite Negative Urine Bilirubin Negative Urine Urobilinogen Negative Ur Leukocyte Esterase Negative 12/04/16 12/04/16 12/04/16 17:00 17:45 23:00 WBC RBC Hgb Hct MCV MCH MCHC RDW Plt Count MPV Sodium Potassium Chloride Carbon Dioxide Anion Gap BUN Creatinine POC Glucometer 172 Random Glucose Hemoglobin A1c % Calcium Phosphorus Magnesium Creatine Kinase 91 Troponin I 0.06 H B-Natriuretic Peptide Triglycerides 144 Cholesterol 162 Total LDL Cholesterol 102 H HDL Cholesterol 50 TSH Urine Color Urine Appearance Urine pH Ur Specific [place] Urine Protein Urine Glucose (UA) Urine Ketones Urine Blood Urine Nitrite Urine Bilirubin Urine Urobilinogen Ur Leukocyte Esterase 12/05/16 12/05/16 12/05/16 05:46 06:00 06:40 WBC 8.5 RBC 5.29 Hgb 15.6 Hct 46.8 MCV 88.4 MCH 29.4 MCHC 33.3 RDW 13.2 Plt Count 231 MPV 10.0 Sodium Potassium Chloride Carbon Dioxide Anion Gap BUN Creatinine POC Glucometer 155 Random Glucose Hemoglobin A1c % Calcium Phosphorus 3.4 Magnesium 1.8 Creatine Kinase Troponin I B-Natriuretic Peptide 1049.81 H Triglycerides Cholesterol Total LDL Cholesterol HDL Cholesterol TSH Urine Color Urine Appearance Urine pH Ur Specific [place] Urine Protein Urine Glucose (UA) Urine Ketones Urine Blood Urine Nitrite Urine Bilirubin Urine Urobilinogen Ur Leukocyte Esterase 12/05/16 12/05/16 12/05/16 06:40 06:40 06:40 WBC RBC Hgb Hct MCV MCH MCHC RDW Plt Count MPV Sodium 144 Potassium 3.6 Chloride 104 Carbon Dioxide 28 Anion Gap 12 BUN 16 D Creatinine 1.0 POC Glucometer Random Glucose 164 H Hemoglobin A1c % 8.6 H Calcium 8.9 Phosphorus Magnesium Creatine Kinase Troponin I 0.04 D B-Natriuretic Peptide Triglycerides Cholesterol Total LDL Cholesterol HDL Cholesterol TSH Urine Color Urine Appearance Urine pH Ur Specific [place] Urine Protein Urine Glucose (UA) Urine Ketones Urine Blood Urine Nitrite Urine Bilirubin Urine Urobilinogen Ur Leukocyte Esterase 12/05/16 10:48 WBC RBC Hgb Hct MCV MCH MCHC RDW Plt Count MPV Sodium Potassium Chloride Carbon Dioxide Anion Gap BUN Creatinine POC Glucometer 167 Random Glucose Hemoglobin A1c % Calcium Phosphorus Magnesium Creatine Kinase Troponin I B-Natriuretic Peptide Triglycerides Cholesterol Total LDL Cholesterol HDL Cholesterol TSH Urine Color Urine Appearance Urine pH Ur Specific [place] Urine Protein Urine Glucose (UA) Urine Ketones Urine Blood Urine Nitrite Urine Bilirubin Urine Urobilinogen Ur Leukocyte Esterase 2D echo reviewed ASSESSMENT AND PLAN: 66 yom with HTN, NIDDM, admitted with new onset CHF found with severe systolic dysfunction and significant WMA -Acute systolic heart failure exacerbation with new onset cardiomyopathy EF 34% Diuresing well, continue lasix, strict I/Os, daily weights. Cardiology input appreciate. Added ASA/coreg/aldactone, increased lisinopril. Needs ischemia work up, will discuss with cardiology if stress test vs cardiac cath. Denies prior ETOH/drug use history. -HTN coreg added. Lisinopril increased, monitor for now -NIDDM A1c noted. Continue ISS and diabetic diet. Hold glyburide/metformin pending further testing and possible NPO status -HLD statin DVTPPx - lovenox dispo - pending further cardiac w/u and clinical improvement. Plan discussed with patient in detail, all questions answered.
[2016-12-05] MEDS ORDERED: POTASSIUM CHLORIDE TABS 20 MEQ TABLET.ER (FP) PO ONE (18:27)
[2016-12-06] MEDS: FUROSEMIDE 40 MG/4 ML INJECTABLE VIAL IVPUSH SCH ×2 (06:04→13:12)
[2016-12-06] MEDS: INSULIN SLIDING SCALE (NOVOLOG) 1 VIAL SQ SCH ×3 (06:08→16:45)
[2016-12-06] MEDS: LISINOPRIL 20 MG TABLET (FP) PO SCH ×2 (09:13→10:08)
[2016-12-06] MEDS: CARVEDILOL 3.125 MG TABLET (FP) PO SCH (09:13)
[2016-12-06] MEDS: TAMSULOSIN HCL 0.4 MG CAP.ER.24H (FP) PO SCH (09:13)
[2016-12-06] MEDS: ASPIRIN COATED 81 MG TABLET.EC PO SCH (09:14)
[2016-12-06] MEDS: ENOXAPARIN NA (PORCINE) 40 MG/0.4 ML DISP.SYRIN SQ SCH (09:14)
[2016-12-06] MEDS: SPIRONOLACTONE 25 MG TABLET (FP) PO SCH (09:14)
[2016-12-06] MEDS: ATORVASTATIN CA 10 MG TABLET (FP) PO SCH (09:14)
[2016-12-06 09:27] LABS: ANION GAP 8 (8-16); CALCIUM 8.9 mg/dL (8.5-10.1); CO2 30 mmol/L (21-32); CREATININE 1.1 mg/dL (0.7-1.3); GLUCOSE,RANDOM 268 mg/dL (74-106)
--- NOTE | 2016-12-06 10:03 | PN ---
Progress Note, Physician Chief Complaint: Pt sitting up at bedside; no chest pain or dyspnea; feels better (no leg swelling; holds conversation withoug exertion).Son and daugther are at bedside. History of Present Illness: The patient is a 66 year old male, with a significant past medical history of hypertension, diabetes (reportedly takes pills), hyperlipidemia, obesity, and psoriasis, who presents to the emergency department with progressive onset of orthopnea and exertional dyspnea since yesterday. The patient reports he can not take deep breaths. He reports his dyspnea is worse at night when lying flat and alleviated slightly with sitting upright. He states his orthopnea keeps me up at night. He denies cough. He also reports bilateral lower extremity swelling for the past 2 months and reportedly took water pills which were prescribed by his PCP, Dr. De Anda. Secondarily, he reports feeling bloated in the upper abdominal region. He also reports some mild nausea. He denies chest pain, headache and dizziness. He denies fever, chills, vomit, diarrhea and constipation. He denies dysuria, frequency, urgency and hematuria. Allergies: penicillins Past surgical history: inguinal hernia repair Social history: nonsmoker. PCP: Dr. De Anda - Current Medication List Current Medications: Active Medications Aspirin (Ecotrin -) 81 mg PO DAILY [facility] Last Admin: 12/06/16 09:14 Dose: 81 mg Atorvastatin Calcium (Lipitor -) 10 mg PO DAILY [facility] Last Admin: 12/06/16 09:14 Dose: 10 mg Carvedilol (Coreg -) 3.125 mg PO BID [facility] Last Admin: 12/06/16 09:13 Dose: 3.125 mg Enoxaparin Sodium (Lovenox -) 40 mg SQ DAILY [facility] Last Admin: 12/06/16 09:14 Dose: 40 mg Furosemide (Lasix Injection -) 40 mg IVPUSH BID@0600,1400 [facility] Last Admin: 12/06/16 06:04 Dose: 40 mg Insulin Aspart (Novolog Vial Sliding Scale -) 0 vial SQ TIDAC [facility] PRN Reason: Protocol Last Admin: 12/06/16 06:08 Dose: Not Given Lisinopril (Prinivil) 20 mg PO DAILY [facility] Last Admin: 12/05/16 13:02 Dose: 20 mg Non-Formulary Medication (Oxybutynin Chloride [Ditropan Xl]) 5 mg PO DAILY [facility] Spironolactone (Aldactone -) 25 mg PO DAILY [facility] Last Admin: 12/06/16 09:14 Dose: 25 mg Tamsulosin HCl (Flomax -) 0.4 mg PO DAILY@0830 [facility] Last Admin: 12/06/16 09:13 Dose: 0.4 mg - Objective Vital Signs: Vital Signs Temperature 98.6 F 12/06/16 09:00 Pulse Rate 88 12/06/16 09:00 Respiratory Rate 18 12/06/16 09:00 Blood Pressure 110/55 12/06/16 09:00 O2 Sat by Pulse Oximetry (%) 92 L 12/05/16 14:40 Constitutional: Yes: Calm Eyes: Yes: WNL HENT: Yes: WNL Neck: Yes: WNL Respiratory: Yes: Diminished Gastrointestinal: Yes: Soft, Abdomen, Obese ...Rectal Exam: Yes: Deferred Genitourinary: No: Anuria Extremities: Yes: Cool Edema: No Peripheral Pulses WNL: No Peripheral Pulses: Left Doralis Pedis: 1+, Right Dorsalis Pedis: 1+ Integumentary: Yes: Venous Stasis Changes (brown patches (macular) both ankles) Labs: CBC, BMP 12/05/16 06:40 12/06/16 08:45 Abnormal Lab Results 12/05/16 12/06/16 06:40 08:45 BUN 24 H D Random Glucose 268 H D Hemoglobin A1c % 8.6 H - ....Imaging Other: Image Reviewed (telemtery: NSR; no arrythmias) Problem List - Problems (1) Edema Code(s): R60.9 - EDEMA, UNSPECIFIED (2) Orthopnea Code(s): R06.01 - ORTHOPNEA (3) CHF (congestive heart failure) Assessment/Plan: + JVD; orthopnea LBBB ECHO: severe systolic LV dysfunction; moderately dilated LV; moderate pulmonary HTN; mildly dilated aortic root. If systolic dysfunction, use ACEI, beta blockers, furosemide, and start Aldactone at a later date. F/u BUn/Cr, daily weight, Is and Os, electrolytes. TNI 0.03; f/u serially. For conronary angiogram and right heart cath today at [facility]. Code(s): I50.9 - HEART FAILURE, UNSPECIFIED Qualifiers: Congestive heart failure type: unspecified congestive heart failure type Congestive heart failure chronicity: acute Qualified Code(s): I50.9 - Heart failure, unspecified; I50.9 - Heart failure, unspecified; I50.9 - Heart failure, unspecified; I50.9 - Heart failure, unspecified
--- NOTE | 2016-12-06 12:40 | DS ---
Physical Exam: SUBJECTIVE: Patient seen and examined. Doing well this AM. No complaints of CP, SOB, fevers, chills OBJECTIVE: Vital Signs Period Temp Pulse Resp BP Sys/Guaman Pulse Ox Last 24 Hr 79 F-98.6 F 79-117 18-20 110-146/55-93 92-94 PHYSICAL EXAM GEN: AAOx3, NAD, Lying in bed comfortably, no SOB at rest HEENT: PERRLA, EOMi, no cervical LAD, no JVD noted on exam CV: S1, S2, RRR, no murmurs LUNG: CTABL ABD: Obese, soft, discomfort in suprapubic region MSK: improved trace bilateral pedal edema, no erythema, normal ROM, psoriatic lesions on dorsum of fingers NEURO: Decreased sensation in BLLE, no MSK deficits LABS Laboratory Last Values WBC 8.5 K/mm3 (4.0-10.0) 12/05/16 06:40 RBC 5.29 M/mm3 (4.00-5.60) 12/05/16 06:40 Hgb 15.6 GM/dL (11.7-16.9) 12/05/16 06:40 Hct 46.8 % (35.4-49) 12/05/16 06:40 MCV 88.4 fl (80-96) 12/05/16 06:40 MCH 29.4 pg (25.7-33.7) 12/05/16 06:40 MCHC 33.3 g/dl (32.0-35.9) 12/05/16 06:40 RDW 13.2 % (11.9-15.9) 12/05/16 06:40 Plt Count 231 K/MM3 (134-434) 12/05/16 06:40 MPV 10.0 fl (7.5-11.1) 12/05/16 06:40 Neutrophils % 69.7 % (42.8-82.8) 12/04/16 11:30 Lymphocytes % 21.4 % (8-40) 12/04/16 11:30 Monocytes % 6.5 % (3.8-10.2) 12/04/16 11:30 Eosinophils % 1.6 % (0-4.5) 12/04/16 11:30 Basophils % 0.8 % (0-2.0) 12/04/16 11:30 Sodium 139 mmol/L (136-145) 12/06/16 08:45 Potassium 3.7 mmol/L (3.5-5.1) 12/06/16 08:45 Chloride 101 mmol/L (98-107) 12/06/16 08:45 Carbon Dioxide 30 mmol/L (21-32) 12/06/16 08:45 Anion Gap 8 (8-16) 12/06/16 08:45 BUN 24 mg/dL (7-18) H D 12/06/16 08:45 Creatinine 1.1 mg/dL (0.7-1.3) 12/06/16 08:45 Creat Clearance w eGFR > 60 (>60) 12/04/16 11:38 POC Glucometer 247 UNITS (()) 12/06/16 11:36 Random Glucose 268 mg/dL (74-106) H D 12/06/16 08:45 Hemoglobin A1c % 8.6 % (4.8-6.0) H 12/05/16 06:40 Calcium 8.9 mg/dL (8.5-10.1) 12/06/16 08:45 Phosphorus 3.4 mg/dL (2.5-4.9) 12/05/16 06:00 Magnesium 1.8 mg/dL (1.8-2.4) 12/05/16 06:00 Total Bilirubin 0.6 mg/dL (0.2-1.0) 12/04/16 11:38 AST 10 U/L (15-37) L 12/04/16 11:38 ALT 24 U/L (12-78) 12/04/16 11:38 Alkaline Phosphatase 81 U/L (45-117) 12/04/16 11:38 Creatine Kinase 91 IU/L (39-308) 12/04/16 23:00 Troponin I 0.04 ng/ml (0.00-0.05) D 12/05/16 06:40 B-Natriuretic Peptide 1049.81 pg/ml (5-125) H 12/05/16 06:00 Total Protein 6.5 g/dl (6.4-8.2) 12/04/16 11:38 Albumin 3.2 g/dl (3.4-5.0) L 12/04/16 11:38 Triglycerides 144 mg/dL (35-160) 12/04/16 17:00 Cholesterol 162 mg/dL (50-200) 12/04/16 17:00 Total LDL Cholesterol 102 mg/dL (5-100) H 12/04/16 17:00 HDL Cholesterol 50 mg/dL (40-60) 12/04/16 17:00 TSH 2.42 uIU/ml (0.358-3.74) 12/04/16 17:00 Urine Color Straw 12/04/16 14:59 Urine Appearance Clear 12/04/16 14:59 Urine pH 5.0 (5.0-8.0) 12/04/16 14:59 Ur Specific [place] <= 1.005 (1.005-1.025) 12/04/16 14:59 Urine Protein Negative (NEGATIVE) 12/04/16 14:59 Urine Glucose (UA) 1+ (NEGATIVE) H 12/04/16 14:59 Urine Ketones Negative (NEGATIVE) 12/04/16 14:59 Urine Blood Negative (NEGATIVE) 12/04/16 14:59 Urine Nitrite Negative (NEGATIVE) 12/04/16 14:59 Urine Bilirubin Negative (NEGATIVE) 12/04/16 14:59 Urine Urobilinogen Negative mg/dL (0.2-1.0) 12/04/16 14:59 Ur Leukocyte Esterase Negative (NEGATIVE) 12/04/16 14:59 HOSPITAL COURSE: Date of Admission:12/04/16 Date of Discharge: 12/06/16 Briefly, Mr Monroy is a 66 y M with past medical history of of HTN, NIDDM, HLD, psoriasis, BPH, CHF who presented to the ED with gradually worsening SOB over the past 2 months, that got worse 1 week ago. It had gotten worse to the point of making him uncomfrotable doing ordinary activities such as putting on clothes. He has associated dyspnea on exertion and orthopnea. Admits to using 3 pillows to sleep comfortably at night. Stated he visited his PCP, Dr. De Anda, regarding the SOB and was given "water pills", later confirmed by the PCP as lasix. The medication seemed to have helped alleviate the symptoms but the patient discontinued use due to frequent urination. Upon admission, the patient denied CP, palpitation, cough, fever, chills, N/V, diarrhea, constipation. While hospitalized, an Echocardiogram revealed an EF of 34.6%, severely reduced LV systolic function, moderately dilated LV, with regional wall motion abnormality, and regional hypokinesis. He was given IV lasix in the hospital and showed great response to diuresis (11 lb weight loss). Dr. Soares ( protective signal installer helper) recommended cardiac catherization for new onset ischemic cardiomyopathy. Coreg, and aspirin were added and lisinopril was increased. Patient will be transferred to [facility] for right heart cath and coronary angiogram. He verbalizes understanding and agrees with the plan. Family is aware. Minutes to complete discharge: 45 Discharge Summary Reason For Visit: ORTHOPNEA Current Active Problems BPH (benign prostatic hyperplasia) (Acute) CHF (congestive heart failure) (Acute) DM II (diabetes mellitus, type II), controlled (Acute) DVT prophylaxis (Acute) Edema (Acute) HTN (hypertension) (Acute) Orthopnea (Acute) Psoriasis (Acute) Condition: Improved - Instructions Diet, Activity, Other Instructions: - You are diagnosed with Congestive Heart Failure - You will be transferred to [facility] for a cardiac catheterization procedure, to see the vessels of your heart - This will help figure out why your heart is not functioning well - We changed your medications while you were in the hospital: - We added Apirin 81mg daily - We added Coreg 3.125mg BID - We increased your Lisinopril to 20mg daily - You are currently on lasix IV and also aldactone which will need to be modified by your protective signal installer helper based on the course. -recommend low salt diet. -Also your diabetes is not well controlled currently, you will need close monitoring of your blood sugars and management with your doctor once discharge from [facility]. - Please follow with your care team at [facility] for further discharge instructions. Referrals: Sridhar De Anda [Primary Care Provider] - 2 Weeks Disposition: TRANSFER ACUTE CARE/OTHER HOSP - Home Medications Comprehensive Discharge Medication List: Ambulatory Orders Glyburide/Metformin HCl [Glyburide-Metformin 5-500 mg] 1 each PO BID 12/04/16 Oxybutynin Chloride [Ditropan Xl] 5 mg PO DAILY 12/04/16 Simvastatin [Zocor -] 20 mg PO DAILY 12/04/16 Tamsulosin HCl [Flomax] 0.4 mg PO DAILY 12/04/16 Aspirin Coated [Ecotrin -] 81 mg PO DAILY #20 tab 12/06/16 Carvedilol [Coreg -] 3.125 mg PO BID tablet 12/06/16 Furosemide Injection [Lasix Injection -] 40 mg IVPUSH BID@0600,1400 vial Insulin Sliding Scale [Novolog Vial Sliding Scale -] 0 vial SQ TIDAC units Lisinopril [Prinivil] 20 mg PO DAILY #20 tablet 12/06/16 This patient is new to me today: No Emergency Visit: No Critical Care patient: No - Discharge Referral Referred to [facility] No
--- NOTE | 2016-12-06 12:40 | PN ---
Teaching Attending Note Name of Resident: Lizet Martinez ATTENDING PHYSICIAN STATEMENT I saw and evaluated the patient. I reviewed the resident's note and discussed the case with the resident. I agree with the resident's findings and plan as documented. SUBJECTIVE: Patient seen and examined. Denies dyspnea, chest pain, palpitations, PND or orthopnea, No new concerns. OBJECTIVE: Vital Signs Period Temp Pulse Resp BP Sys/[place] Pulse Ox Last 24 Hr 79 F-98.6 F 79-117 18-20 110-146/55-93 92-94 Intake & Output 12/03/16 12/04/16 12/05/16 12/06/16 23:59 23:59 23:59 23:59 Intake Total 480 640 425 Output Total 2900 0015 800 Balance -1646 -5342 -438 Weight 219 lb 4 oz 211 lb 6 oz 208 lb 8 oz General - no acute distress, ambulating comfortably CVS -S1S2 regular Chest - CTAB, no rales or wheezing abdomen - soft, obese, NT, positive bowel sounds extr - trace pedal edema (improved) Current Medications Generic Name Dose Route Start Last Admin Trade Name Jose Luisq PRN Reason Stop Dose Admin Aspirin 81 mg 12/05/16 10:45 12/06/16 09:14 Ecotrin - PO 81 mg DAILY [facility] Administration Atorvastatin Calcium 10 mg 12/05/16 10:00 12/06/16 09:14 Lipitor - PO 10 mg DAILY [facility] Administration Carvedilol 3.125 mg 12/05/16 10:45 12/06/16 09:13 Coreg - PO 3.125 mg BID [facility] Administration Enoxaparin Sodium 40 mg 12/05/16 10:00 12/06/16 09:14 Lovenox - SQ 40 mg DAILY [facility] Administration Furosemide 40 mg 12/05/16 06:00 12/06/16 06:04 Lasix Injection - IVPUSH 40 mg BID@0600,1400 [facility] Administration Insulin Aspart 0 vial 12/04/16 16:30 12/06/16 11:45 Novolog Vial Sliding Scale - SQ Not Given TIDAC [facility] Protocol Lisinopril 20 mg 12/05/16 10:45 12/06/16 10:08 Prinivil PO 20 mg DAILY [facility] Administration Non-Formulary Medication 5 mg 12/05/16 10:00 Oxybutynin Chloride [Ditropan Xl] PO DAILY [facility] Spironolactone 25 mg 12/05/16 11:00 12/06/16 09:14 Aldactone - PO 25 mg DAILY [facility] Administration Tamsulosin HCl 0.4 mg 12/05/16 08:30 12/06/16 09:13 Flomax - PO 0.4 mg DAILY@0830 [facility] Administration 2d echo reviewed Laboratory Results - last 24 hr 12/06/16 12/06/16 12/06/16 06:06 08:45 11:36 Sodium 139 Potassium 3.7 Chloride 101 Carbon Dioxide 30 Anion Gap 8 BUN 24 H D Creatinine 1.1 POC Glucometer 197 247 Random Glucose 268 H D Calcium 8.9 ASSESSMENT AND PLAN: -Acute systolic heart failure exacerbation -New onset cardiomyopathy, EF 34%, suspect ischemic -HTN -NIDDM, poorly controlled -Obesity -HLD -BPH Plan: Continue lasix 40 mg IV q12h as tolerated by renal function and as long as diuresing well. Low salt diet counseling. Cardiology input appreciated. Continue ASA/coreg/lisinopril Defer spironolactone to cardiology. Diabetic counseling, needs close monitoring and meds adjustment outpatient, discussed with patient. Plan for transfer to [facility] today for cardiac cath and further management. Discussed with patient and family at bedside in detail, all questions answered.
[2016-12-06 17:41] VITALS: PULSE 80
[2016-12-06 19:01] VITALS: BP 115/76; TEMP 98.8
== END 2016-12-06 19:07 | disposition short-term general hospital (02) | DRG 302 ==
LOC: JER 10:08 → JERBED 12:36 → J4W 14:25
PROVIDERS: ADMIT Internal Medicine; ATTEND Hospitalist
DX: I25.5 Ischemic cardiomyopathy (principal); I50.21 Acute systolic (congestive) heart failure; I10 Essential (primary) hypertension; E11.9 Type 2 diabetes mellitus without complications; E78.5 Hyperlipidemia, unspecified; L40.9 Psoriasis, unspecified; Z79.84 Long term (current) use of oral hypoglycemic drugs; E66.9 Obesity, unspecified; Z68.30 Body mass index [BMI] 30.0-30.9, adult; I44.7 Left bundle-branch block, unspecified; N40.0 Benign prostatic hyperplasia without lower urinary tract symptoms; F41.9 Anxiety disorder, unspecified; N32.81 Overactive bladder; Z95.4 Presence of other heart-valve replacement
CPT/HCPCS: 36415; 71010-TC; 80048; 80053; 80061; 81003; 82550; 83036; 83721; 83735; 83880; 84100; 84443; 84484; 85025; 85027; 90670; 90688; 93005; 93010; 93306-TC; 94761; 99283-25

== ENCOUNTER 2019-08-31 15:02 | Inpatient (IN) | payer OTHER, MEDICARE ==
[2019-08-31 15:13] VITALS: BMI 29.5
--- NOTE | 2019-08-31 16:08 | PDOC ---
History of Present Illness - General Chief Complaint: Shortness of Breath Stated Complaint: SOB Time Seen by Provider: 08/31/19 15:17 History Source: Patient Exam Limitations: No Limitations - History of Present Illness Initial Comments: 08/31/19 16:06 69M PMH CHF, HTN, HLD, DM presenting for eval of GONZALES and orthopnea. Has been experiencing on/off sx of GONZALES for months now but was in [facility] until Saturday, told there to increase lasix 40 from daily to BID. Poor historian in terms of symptom description. Pt prefers Spanish. Denies f/c, new cough, sore throat, runny nose. Denies chest pain. Past History - Medical History Allergies/Adverse Reactions: Allergies Allergy/AdvReac Type Severity Reaction Status Date / Time Penicillins Allergy Verified 08/31/19 15:13 Home Medications: Ambulatory Orders Tamsulosin HCl [Flomax] 0.4 mg PO DAILY 12/04/16 Aspirin Coated [Ecotrin -] 81 mg PO DAILY #20 tab 12/06/16 Carvedilol [Coreg -] 3.125 mg PO BID tablet 12/06/16 Amlodipine Besylate 2.5 mg PO DAILY 08/31/19 Clopidogrel Bisulfate [Plavix] 75 mg PO DAILY 08/31/19 Furosemide [Lasix -] 40 mg PO DAILY 08/31/19 Glyburide/Metformin HCl [Glyburide-Metformin 5-500 mg] 1 each PO BID 08/31/19 Lisinopril [Prinivil] 5 mg PO DAILY 08/31/19 Pantoprazole Sodium 40 mg PO BID 08/31/19 Rosuvastatin [Crestor -] 20 mg PO DAILY 08/31/19 Cardiac Disorders: Yes (6 STENTS) COPD: No CHF: Yes Diabetes: Yes HTN: Yes - Surgical History Abdominal Surgery: Yes (hernia repair) - Psycho-Social/Smoking History Smoking History: Never smoked Have you smoked in the past 12 months: No Information on smoking cessation initiated: No - Substance Abuse Hx (Audit-C & DAST Scrn) How often the patient has a drink containing alcohol: Never Score: In Men: 4 or > Positive; In Women: 3 or > Positive: 0 Screen Result (Pos requires Nsg. Audit-10AR): Negative In the last yr the pt used illegal drug/Rx for NonMed reason: No Score: Yes response is considered Positive: 0 Screen Result (Positive result requires Nsg. DAST-10): Negative Review of Systems - Review of Systems Comments:: 09/01/19 03:01 CONSTITUTIONAL: Denies F / C HEENT: Denies headache, sore throat, rhinorrhea RESP: + GONZALES, orthopnea. chronic cough (unchanged). CARD: Denies chest pain, palpitations GI: Denies N / V / D, abdominal pain, bloody stool, inability to tolerate PO : Denies dysuria, hematuria, frequency NEURO: Denies numbness, tingling, weakness MSK: Denies back pain SKIN: + edema *Physical Exam - Vital Signs Last Vital Signs Temp Pulse Resp BP Pulse Ox 98.2 F 110 H 20 155/94 97 08/31/19 15:04 08/31/19 15:04 08/31/19 15:04 08/31/19 15:04 08/31/19 15:54 - Physical Exam 09/01/19 03:01 GEN: Well appearing, NAD, comfortable. AAOx3. HEENT: NC/AT, EOMI, PERRL. No facial asymmetry. Moist mucous membranes. Normal voice. Supple neck w/ FROM. CV: S1/S2, RRR, no m/r/g LUNG: L base crackle o/w CTAB but w/ decr air entry GI: Soft, ndnt, +BS, no guarding, no rebound. MSK: 3+ LE edema. No obvious deformities of all extremities. SKIN: Warm, dry, no rashes appreciated. PSYCH: Normal mood and affect. NEURO: Moving all extremities well. ambulates w/ normal gait. ED Treatment Course - LABORATORY CBC & Chemistry Diagram: 08/31/19 15:43 08/31/19 15:43 - RADIOLOGY Radiology Studies Ordered: Category Date Time Status CXRPORT [CHEST X-RAY PORTABLE*] [RAD] Stat Radiology 08/31/19 15:18 Ordered Medical Decision Making - Medical Decision Making 09/01/19 03:01 69M PMH CHF presenting with GONZALES and orthopnea. left sided crackles, decreased air entry, 3+ b/l pitting edema. Likely CHF exacerbation. - CBC, CMP, Cardiac, BNP - CXR - EKG 1534 HR 117 NH 168 QRS 152 QTc 504, Sinus tach., LBBB. Appears similar to prior EKG done on 07/27/19 EXCEPT change in QRS orientation in leads III, aVL, and aVF - Admit 08/31/19 17:44 labs reviewed CXR reviewed w/ b/l pelural effusion toshia warren dw patient, ameanble to admission endorsed to hospitalist //ADMITTED Discharge - Discharge Information Problems reviewed: Yes Clinical Impression/Diagnosis: CHF (congestive heart failure) Qualifiers: Qualified Code(s): I50.9 - Heart failure, unspecified Disposition: AGAINST MEDICAL ADVICE - Follow up/Referral - Patient Discharge Instructions - Post Discharge Activity
[2019-08-31 16:10] LABS: BASO % 0.8 % (0-2.0); EOS % 1.9 % (0-4.5); HEMATOCRIT 52.7 % (35.4-49); HEMOGLOBIN 17.1 GM/dL (11.7-16.9); LYMPH % 17.8 % (8-40); MCH 31.1 pg (25.7-33.7); MCHC 32.5 g/dl (32.0-35.9); MEAN CELL VOLUME 95.6 fl (80-96); MEAN PLT VOLUME 10.8 fl (7.5-11.1); MONO % 6.3 % (3.8-10.2); NEUT % 73.2 % (42.8-82.8); PLATELET COUNT 199 K/MM3 (134-434); RBC 5.51 M/mm3 (4.00-5.60); RDW 15.5 % (11.9-15.9); WHITE BLOOD COUNT 6.4 K/mm3 (4.0-10.0)
[2019-08-31 16:31] LABS: ALBUMIN 3.4 g/dl (3.4-5.0); BILIRUBIN,TOTAL 1.6 mg/dL (0.2-1); BLOOD UREA NITROGEN 22.9 mg/dL (7-18); CALCIUM 9.5 mg/dL (8.5-10.1); CREATININE 1.5 mg/dL (0.55-1.3); N-TERMINAL BNP 3208.6 pg/ml (5-125); POTASSIUM 4.1 mmol/L (3.5-5.1); TOT PROT 7.2 g/dl (6.4-8.2)
[2019-08-31] MEDS ORDERED: FUROSEMIDE 40 MG/4 ML INJECTABLE VIAL IVPUSH ONE (17:16)
--- NOTE | 2019-08-31 17:30 | PDOC ---
Documentation entered by Rohini Llanes SCRIBE, acting as scribe for Kathi Nuñez MD. Kathi Nuñez MD: This documentation has been prepared by the Brant woodall Xhesika, SCRIBE, under my direction and personally reviewed by me in its entirety. I confirm that the documentation accurately reflects all work, treatment, procedures, and medical decision making performed by me. Attending Attestation - Resident Resident Name: AbrahanBlanco - ED Attending Attestation I have performed the following: I have examined & evaluated the patient, The case was reviewed & discussed with the resident, I agree w/resident's findings & plan, Exceptions are as noted - HPI HPI: 08/31/19 17:26 The patient is a 69y/o M with a PMH of CHF, HTN, HLD, DM presenting for intermittent SOB, GONZALES, and orthopnea for several months.Pt states he was in [place] until Saturday, and while he was there he was told to increase lasix 40 from daily to BID. Pt reports a chronic cough. Allergies: penicillin PCP: Charu Baugh - Physicial Exam PE: 08/31/19 18:38 wnwd 69 yo male with c/o dyspnea on exertion and he had a long h/o chf. head ncat neck supple lungs cta b/l cvs [id number] abdomen protuberant extremities chronicx venous stasis,pitting edema +2 skin warm and dry neuro axox3,motor strength 5/5 b/l,ambulatory - Medical Decision Making 08/31/19 17:28 69-year-old male with history of hypertension hyperlipidemia, diabetes, CHF presents because of increasing shortness of breath on exertion. Chest x-ray showed moderate to large right pleural effusion, +chf Creatinine increased to 1.5 BNP is above 3000 ekg sinus tachycardia 117 bpm, chronic LBBB Patient with CHF exacerbation , will admit hospitalist 08/31/19 17:30 Discharge - Discharge Information Problems reviewed: Yes Clinical Impression/Diagnosis: CHF (congestive heart failure) Qualifiers: Qualified Code(s): I50.9 - Heart failure, unspecified Disposition: AGAINST MEDICAL ADVICE - Follow up/Referral - Patient Discharge Instructions - Post Discharge Activity
[2019-08-31] MEDS ORDERED: FUROSEMIDE 40 MG/4 ML INJECTABLE VIAL ONE (17:35)
--- NOTE | 2019-08-31 19:17 | HP ---
CHIEF COMPLAINT: Increased shortness of breath on exertion PCP: Dr. De Anda HISTORY OF PRESENT ILLNESS: Mr. Monroy is a 69 year old male with a PMHx of HFrEF 35% (2012), CHF, NIDDM,BPH, who presents to the emergency department with a cc of gradually worsening SOB over the past few months. The patients notes that it has worsened after his trip to the [facility] to visit his . The patient states that his was noted to have a fever and he admits to having been exposed to her prior to this finding. The patient had been in the [facility] for 2 weeks and had returned on saturday08/28/2019. The patients history is also notable for multiple hospital visits for similar reasons. When questioned about the visits the patient states that he would be given medication for his heart and be discharged. The patient also noted a history of a stent on plavix. The patient was examined at bedside and appears to be in no acute distress. The patient reports that he is unable to climb a flight of stairs without becoming winded but is able to ambulate if he takes his time. ER course was notable for: (1) BP 157/104 (2)Hgb 17.1 Recent Travel: [facility] PAST MEDICAL HISTORY: see hpi PAST SURGICAL HISTORY:see hpi Social History: Smoking: Denies Alcohol: Denies Drugs: Denies Allergies Penicillins Allergy (Verified 08/31/19 15:13) HOME MEDICATIONS: Home Medications Medication Instructions Recorded Tamsulosin HCl [Flomax] 0.4 mg PO DAILY 12/04/16 Aspirin Coated [Ecotrin -] 81 mg PO DAILY #20 tab 12/06/16 Carvedilol [Coreg -] 3.125 mg PO BID tablet 12/06/16 Amlodipine Besylate 2.5 mg PO DAILY 08/31/19 Clopidogrel Bisulfate [Plavix] 75 mg PO DAILY 08/31/19 Furosemide [Lasix -] 40 mg PO DAILY 08/31/19 Glyburide/Metformin HCl 1 each PO BID 08/31/19 [Glyburide-Metformin 5-500 mg] Lisinopril [Prinivil] 5 mg PO DAILY 08/31/19 Pantoprazole Sodium 40 mg PO BID 08/31/19 Rosuvastatin [Crestor -] 20 mg PO DAILY 08/31/19 REVIEW OF SYSTEMS CONSTITUTIONAL: Absent: fever, chills, diaphoresis, generalized weakness, malaise, loss of appetite, weight change HEENT: Absent: rhinorrhea, nasal congestion, throat pain, throat swelling, difficulty swallowing, mouth swelling, ear pain, eye pain, visual changes CARDIOVASCULAR: peripheral edema 2+ BL LE Absent: chest pain, syncope, palpitations, irregular heart rate, lightheadedness, RESPIRATORY: bilateral crackles at bases GASTROINTESTINAL: Absent: abdominal pain, abdominal distension, nausea, vomiting, diarrhea, constipation, melena, hematochezia GENITOURINARY: Absent: dysuria, frequency, urgency, hesitancy, hematuria, flank pain, genital pain HEMATOLOGIC/IMMUNOLOGIC: increased hemaglobin NEUROLOGIC: Absent: headache, focal weakness or paresthesias, dizziness, unsteady gait, seizure, mental status changes, bladder or bowel incontinence PSYCHIATRIC: Absent: anxiety, depression, suicidal or homicidal ideation, hallucinations. PHYSICAL EXAMINATION Vital Signs - 24 hr 08/31/19 08/31/19 08/31/19 15:04 15:54 16:00 Temperature 98.2 F Pulse Rate 110 H Pulse Rate [ 114 H Apical] Respiratory 20 17 Rate Blood Pressure 155/94 Blood Pressure 157/104 H [Left Arm] O2 Sat by Pulse 97 97 95 Oximetry (%) GENERAL: Awake, alert, and fully oriented, in no acute distress. HEAD: Normal with no signs of trauma. NECK: Normal range of motion, supple without lymphadenopathy, JVD, or masses. LUNGS: CRACKLES HEARD bilaterally HEART: TACHYCARDIC RATE. Regular rhythm, normal S1 and S2 without murmur, rub or gallop. ABDOMEN: Soft, nontender, not distended, normoactive bowel sounds, no guarding, no rebound, no masses. No hepatomegaly or splenomegaly. LOWER EXTREMITIES: 2+ peripheral edema LE PSYCHIATRIC: Cooperative. Good eye contact. Appropriate mood and affect. SKIN: Warm, dry, normal turgor, no rashes or lesions noted, normal capillary refill. Laboratory Results - last 24 hr 08/31/19 08/31/19 15:43 15:43 WBC 6.4 RBC 5.51 Hgb 17.1 H Hct 52.7 H MCV 95.6 MCH 31.1 MCHC 32.5 RDW 15.5 Plt Count 199 MPV 10.8 Absolute Neuts (auto) 4.7 Neutrophils % 73.2 Lymphocytes % 17.8 Monocytes % 6.3 Eosinophils % 1.9 Basophils % 0.8 Nucleated RBC % 0 Sodium 141 Potassium 4.1 Chloride 104 Carbon Dioxide 28 Anion Gap 9 BUN 22.9 H Creatinine 1.5 H Est GFR (CKD-EPI)AfAm 53.89 Est GFR (CKD-EPI)NonAf 46.50 Random Glucose 201 H Calcium 9.5 Total Bilirubin 1.6 H AST 36 ALT 39 Alkaline Phosphatase 200 H Creatine Kinase 161 Creatine Kinase Index 2.9 CK-MB (CK-2) 4.7 H Troponin I 0.02 B-Natriuretic Peptide 3208.6 H Total Protein 7.2 Albumin 3.4 ASSESSMENT/PLAN: Mr. Monroy is a 69M with a pmhx of HFrEF 35% (2012), CHF, NIDDM,BPH, who presents to the emergency department with a cc of gradually worsening SOB over the past few months. The patients notes that it has worsened after his trip to the [place] to visit his . Patient's main complaint is his increased shortness of breath on exertion and was admitted for acute CHF exacerbation. #Acute on chronic CHF exacerbation Echo previously shows severely reduced EF of 34% (11/2016) Patient likely not moderating sodium intake - EGK notable for tachycardia and previous LBBB - BNP 3208.6 - Holding patients home dose of lasix - Start patient on 40mg IV lasix - Monitor on telemetry - Echo cardiography ordered - serial troponins - serial EKGs - STRICT INS AND OUTS - Daily weights - holding home medications for hypertension #NIDDM Glucose of 201 - holding metformin in the setting of increased BUN/Cr = 22.9/1.5 - Insulin sliding scale - sodium and diabetic diet #PVD chronic venous stasis - compression stockings - continue on crestor 20mg - Sequential compression device BPH - Continue on tamsulosin - monitor renal activity - monitor ssx of dysuria Visit type - Medication Review Med list reviewed for High Risk Meds patients 65 and older: Yes - Emergency Visit Emergency Visit: Yes ED Registration Date: 08/31/19 Care time: The patient presented to the Emergency Department on the above date and was hospitalized for further evaluation of their emergent condition. - New Patient This patient is new to me today: Yes Date on this admission: 08/31/19 - Critical Care Critical Care patient: No ATTENDING PHYSICIAN STATEMENT I saw and evaluated the patient. I reviewed the resident's note and discussed the case with the resident. I agree with the resident's findings and plan as documented. SUBJECTIVE: OBJECTIVE: ASSESSMENT AND PLAN:
--- NOTE | 2019-08-31 19:34 | PN ---
Teaching Attending Note Name of Resident: Jameson Hager ATTENDING PHYSICIAN STATEMENT I saw and evaluated the patient. I reviewed the resident's note and discussed the case with the resident. I agree with the resident's findings and plan as documented. SUBJECTIVE:Mr. Monroy is a 69 year old male with a PMHx of HFrEF 35% (2012), CHF, NIDDM,BPH, who presents to the emergency department with a cc of gradually worsening SOB over the past few months. The patients notes that it has gotten progressively worse after his trip to the [place] after visiting his . The patient states that in the DR. his was noted to have a fever at the time. The patient had been in [place] [facility] [place] for 2 weeks and had returned on saturday08/28/2019. The patients has beeb taking lasix 40 mg po daily was supposed to be on bid as per rec in DR but stayed on qd, . The patient was examined at bedside and appears to be in no acute distress. The patient reports that he is unable to climb a flight of stairs without becoming winded but is able to ambulate around OBJECTIVE: O/E is comfortable, nad alert awake oriented to time place and person, neck supple no jvd cvs s1/s2/0 chest ctab abd benign ext no c/c/2 + edema, with chronic venous stasis changes. and patcthes of dry skin, and also patches of redness, neuro non focal, ASSESSMENT AND PLAN: 69 year old male with a PMHx of HFrEF 35% (2016), CHF, NIDDM,BPH, who presents to the emergency department with a cc of gradually worsening SOB over the past few months. CHF exacerbation, likely non compliant with diet, and will admit, diet control rule out ischemia, EKG notable for the LBBB old, and will get echo repeat, might be Candidate for AICD, DM hold metformin, and RISS HTn will continue lisinopril and optimize coreg, leg rash from chronic venous stasis changes, HC and leg elevation
[2019-08-31] MEDS ORDERED: HEPARIN NA (PORCINE) 5,000 UNITS/ML 1ML VIAL SQ SCH (22:00)
[2019-08-31] MEDS ORDERED: PANTOPRAZOLE 40 MG TABLET PO SCH (22:00)
[2019-08-31] MEDS ORDERED: HYDROCORTISONE 1% TOPICAL OINT 30 GM TUBE TP SCH (22:00)
[2019-08-31] MEDS ORDERED: HEPARIN NA (PORCINE) 5,000 UNITS/ML 1ML VIAL ONE (22:27)
[2019-08-31] MEDS ORDERED: PANTOPRAZOLE 40 MG TABLET ONE (22:28)
[2019-08-31 23:44] VITALS: BP 136/78; PULSE 81; TEMP 98.3
[2019-09-01] MEDS ORDERED: TAMSULOSIN HCL 0.4 MG CAP PO SCH (08:30)
[2019-09-01] MEDS ORDERED: ASPIRIN COATED 81 MG TABLET.EC PO SCH (10:00)
[2019-09-01] MEDS ORDERED: CLOPIDOGREL BISULFATE 75 MG TABLET (FP) PO SCH (10:00)
[2019-09-01] MEDS ORDERED: FUROSEMIDE 40 MG/4 ML INJECTABLE VIAL IVPUSH SCH (10:00)
--- NOTE | 2019-09-01 12:05 | EKG ---
Test Reason : Blood Pressure : / mmHG Vent. Rate : 117 BPM Atrial Rate : 117 BPM P-R Int : 168 ms QRS Dur : 152 ms QT Int : 362 ms P-R-T Axes : 000 -29 115 degrees QTc Int : 504 ms POOR DATA QUALITY, INTERPRETATION MAY BE ADVERSELY AFFECTED SINUS TACHYCARDIA LEFT BUNDLE BRANCH BLOCK ABNORMAL ECG WHEN COMPARED WITH ECG OF 27-JUL-2019 15:13, QRS AXIS SHIFTED LEFT T WAVE INVERSION MORE EVIDENT IN LATERAL LEADS Confirmed by Ayo Guajardo MD ([id number]) on 09/01/2019 12:05:25 PM Referred By: Confirmed By:Ayo Guajardo MD
--- NOTE | 2019-09-01 16:27 | DS ---
Physical Exam: SUBJECTIVE: Patient seen and examined Patient had left prior to being seen or examined OBJECTIVE: Vital Signs Period Temp Pulse Resp BP Sys/Guaman Pulse Ox Last 24 Hr 98.3 F-98.9 F 81-91 18-92 135-136/78-80 96-96 PHYSICAL EXAM N/A LABS Laboratory Results - last 24 hr 08/31/19 15:43 Sodium 141 Potassium 4.1 Chloride 104 Carbon Dioxide 28 Anion Gap 9 BUN 22.9 H Creatinine 1.5 H Est GFR (CKD-EPI)AfAm 53.89 Est GFR (CKD-EPI)NonAf 46.50 Random Glucose 201 H Calcium 9.5 Total Bilirubin 1.6 H AST 36 ALT 39 Alkaline Phosphatase 200 H Creatine Kinase 161 Creatine Kinase Index 2.9 CK-MB (CK-2) 4.7 H Troponin I 0.02 B-Natriuretic Peptide 3208.6 H Total Protein 7.2 Albumin 3.4 HOSPITAL COURSE: Date of Admission:08/31/19 Mr. Monroy is a 69 year old male with a PMHx of HFrEF 35% (2012), CHF, NIDDM,BPH, who presents to the emergency department with a cc of gradually worsening SOB over the past few months. The patients notes that it has worsened after his trip to [place] . The patient states that his was noted to have a fever and he admits to having been exposed to her prior to this finding. The patient had been [place] and had returned on saturday08/28/2019. The patients history is also notable for multiple hospital visits for similar reasons. When questioned about the visits the patient states that he would be given medication for his heart and be discharged. The patient also noted a history of a stent on plavix. The patient was examined at bedside and appears to be in no acute distress. The patient reports that he is unable to climb a flight of stairs without becoming winded but is able to ambulate if he takes his time. The patient was unable to be examined before signing the AMA form in the late evening. The night team had explained to the patient about the risks and harm that could occur by leaving AMA. Date of Discharge: 09/01/19 Minutes to complete discharge: 40 Discharge Summary Problems reviewed: Yes Reason For Visit: ACUTE ON CHRONIC CONGESTIVE HERT FAILURE - Instructions Diet, Activity, Other Instructions: You were admitted to the hospital for worsening shortness of breath, which we believe may have been caused by weakening of your heart. We recommend further tests for your condition, however, you have decided to leave against medical advice. You have been informed of the risks of leaving without complete w orkup/treatment including but not limited to worsening shortness of breath, decreased heart function, and . Please return to the ER if you have worsening shortness of breath or if any of your symptoms return. Referrals: Sridhar De Anda [Primary Care Provider] - Disposition: AGAINST MEDICAL ADVICE - Home Medications Comprehensive Discharge Medication List: Ambulatory Orders Tamsulosin HCl [Flomax] 0.4 mg PO DAILY 12/04/16 Aspirin Coated [Ecotrin -] 81 mg PO DAILY #20 tab 12/06/16 Carvedilol [Coreg -] 3.125 mg PO BID tablet 12/06/16 Amlodipine Besylate 2.5 mg PO DAILY 08/31/19 Clopidogrel Bisulfate [Plavix] 75 mg PO DAILY 08/31/19 Furosemide [Lasix -] 40 mg PO DAILY 08/31/19 Glyburide/Metformin HCl [Glyburide-Metformin 5-500 mg] 1 each PO BID 08/31/19 Lisinopril [Prinivil] 5 mg PO DAILY 08/31/19 Pantoprazole Sodium 40 mg PO BID 08/31/19 Rosuvastatin [Crestor -] 20 mg PO DAILY 08/31/19 This patient is new to me today: No Emergency Visit: Yes ED Registration Date: 08/31/19 Care time: The patient presented to the Emergency Department on the above date and was hospitalized for further evaluation of their emergent condition. Critical Care patient: No - Discharge Referral Referred to [facility] No ATTENDING PHYSICIAN STATEMENT I saw and evaluated the patient. I reviewed the resident's note and discussed the case with the resident. I agree with the resident's findings and plan as documented. SUBJECTIVE: OBJECTIVE: ASSESSMENT AND PLAN:
[2019-09-01] MEDS ORDERED: ROSUVASTATIN CA 20 MG TABLET (FP) PO SCH (22:00)
--- NOTE | 2019-09-02 07:03 | ECHO ---
Name: TRENTON VORA Exam:Adult Echocardiogram Study Date: 09/01/2019 09:40 AM Age: 69 yrs Reason For Study: HTN Height: 66 in Weight: 192 lb BSA: 2.0 m2 MMode/2D Measurements & Calculations IVSd: 1.1 cm Ao root diam: 3.6 cm LVIDd: 4.2 cm LA dimension: 3.9 cm LVIDs: 2.8 cm LVPWd: 0.93 cm EDV(Teich): 78.9 ml LVOT diam: 2.0 cm ESV(Teich): 30.0 ml LVLd ap4: 7.3 cm SV(MOD-sp4): 115.8 ml EDV(MOD-sp4): 168.0 ml LVLs ap4: 6.8 cm ESV(MOD-sp4): 52.2 ml LAV (MOD-bp): 88.8 ml Doppler Measurements & Calculations MV V2 max: 86.0 cm/sec MV E max javi: 38.3 cm/sec MV max P.0 mmHg MV A max javi: 82.6 cm/sec MV V2 mean: 51.8 cm/sec MV E/A: 0.46 MV mean P.2 mmHg MV dec time: 0.18 sec MV V2 VTI: 20.0 cm Ao V2 max: 140.3 cm/sec AI max javi: 307.7 cm/sec Ao max P.9 mmHg AI max P.9 mmHg AI P1/2t: 1148 msec AI dec slope: 78.5 cm/sec2 DAVID(V,D): 1.3 cm2 LV V1 max P.5 mmHg MR max javi: 173.4 cm/sec LV V1 max: 61.1 cm/sec MR max P.0 mmHg PA V2 max: 97.7 cm/sec Med Peak E' Javi: 5.2 cm/sec PA max P.8 mmHg Med E/e': 7.3 Lat Peak E' Javi: 8.5 cm/sec Lat E/e': 4.5 PI Vmax: 210.4 cm/sec Procedure A two-dimensional transthoracic echocardiogram with color flow and Doppler was performed. The patient was in normal sinus rhythm during the exam. Left Ventricle The left ventricle is mildly dilated. Left ventricular systolic function is moderately reduced. Eject ion Fraction = 45%. The transmitral spectral Doppler flow pattern is suggestive of impaired LV relaxation . Right Ventricle The right ventricle is normal in size and function. Atria Normal left and right atrial size and function. Mitral Valve The mitral valve is normal. There is trace mitral regurgitation. Tricuspid Valve The tricuspid valve is normal. No tricuspid regurgitation. Aortic Valve Fibrocalcific aortic valve without stenosis. Trace aortic regurgitation. Pulmonic Valve The pulmonic valve is not well seen, but is grossly normal. Trace pulmonic valvular regurgitation. Great Vessels The aortic root is normal size. Pericardium/Pleura There is no pericardial effusion. Interpretation Summary The left ventricle is mildly dilated. Left ventricular systolic function is moderately reduced. Ejection Fraction = 45%. The transmitral spectral Doppler flow pattern is suggestive of impaired LV relaxation. The right ventricle is normal in size and function. There is trace mitral regurgitation. Fibrocalcific aortic valve without stenosis. Trace aortic regurgitation. Trace pulmonic valvular regurgitation. There is no pericardial effusion. MD Catracho iJ 09/01/2019 11:25 AM
== END 2019-08-31 23:00 | disposition left against medical advice (07) | DRG 291 ==
LOC: JER 15:02 → JERBED 17:46
PROVIDERS: ADMIT Internal Medicine; ATTEND Internal Medicine
DX: I13.0 Hypertensive heart and chronic kidney disease with heart failure and stage 1 through stage 4 chronic kidney disease, or unspecified chronic kidney disease (principal); I50.23 Acute on chronic systolic (congestive) heart failure; N17.9 Acute kidney failure, unspecified; E78.5 Hyperlipidemia, unspecified; N40.0 Benign prostatic hyperplasia without lower urinary tract symptoms; E11.51 Type 2 diabetes mellitus with diabetic peripheral angiopathy without gangrene; E11.649 Type 2 diabetes mellitus with hypoglycemia without coma; N18.9 Chronic kidney disease, unspecified
CPT/HCPCS: 36415; 71045-TC-FY; 80053; 82550; 82553; 83880; 84484; 85025; 93005; 93010; 93306-TC; 99285-25; U0003

== ENCOUNTER 2020-01-08 21:39 | Inpatient (IN) | payer OTHER, MEDICARE ==
[2020-01-08 21:50] VITALS: BMI 32.8
[2020-01-08] MEDS ORDERED: ASPIRIN 81 MG CHEWABLE TABLETS PO ONE (23:07)
[2020-01-08] MEDS ORDERED: ASPIRIN 81 MG CHEWABLE TABLETS ONE (23:09)
[2020-01-08 23:46] LABS: EOS % 2.2 % (0-4.5); HEMATOCRIT 47.9 % (35.4-49); HEMOGLOBIN 15.6 GM/dL (11.7-16.9); LYMPH % 11.3 % (8-40); MCHC 32.6 g/dl (32.0-35.9); MEAN PLT VOLUME 10.2 fl (7.5-11.1); MONO % 5.4 % (3.8-10.2); NEUT % 80.1 % (42.8-82.8); PLATELET COUNT 225 K/MM3 (134-434); RBC 5.04 M/mm3 (4.00-5.60); RDW 16.1 % (11.9-15.9); WHITE BLOOD COUNT 7.5 K/mm3 (4.0-10.0)
[2020-01-09 00:07] LABS: CHLORIDE 101 mmol/L (98-107); POTASSIUM 4.5 mmol/L (3.5-5.1)
[2020-01-09 00:36] LABS: CALCIUM 9.1 mg/dL (8.5-10.1)
[2020-01-09 00:37] LABS: ALBUMIN 3.1 g/dl (3.4-5.0); ALK PHOS 107 U/L (45-117); ANION GAP 9 MMOL/L (8-16); BILIRUBIN,TOTAL 2.6 mg/dL (0.2-1); BLOOD UREA NITROGEN 17.5 mg/dL (7-18); CO2 29 mmol/L (21-32); CREATININE 1.6 mg/dL (0.55-1.3); GLUCOSE,RANDOM 221 mg/dL (74-106); N-TERMINAL BNP 12083.6 pg/ml (5-125); SGOT/AST 39 U/L (15-37); SGPT/ALT 24 U/L (13-61); SODIUM 139 mmol/L (136-145); TOT PROT 6.8 g/dl (6.4-8.2)
[2020-01-09] MEDS ORDERED: FUROSEMIDE 40 MG/4 ML INJECTABLE VIAL IVPUSH ONE (01:01)
[2020-01-09] MEDS ORDERED: FUROSEMIDE 40 MG/4 ML INJECTABLE VIAL ONE ×2 (01:05→10:02)
[2020-01-09] MEDS: INSULIN SLIDING SCALE (NOVOLOG) 1 VIAL SQ SCH ×4 (08:18→22:32)
[2020-01-09] MEDS: FUROSEMIDE 40 MG/4 ML INJECTABLE VIAL IVPUSH SCH (10:10)
[2020-01-09 11:48] LABS: BASO % 0.8 % (0-2.0); EOS % 1.6 % (0-4.5); HEMATOCRIT 48.4 % (35.4-49); HEMOGLOBIN 15.9 GM/dL (11.7-16.9); LYMPH % 9.3 % (8-40); MCH 31.3 pg (25.7-33.7); MCHC 32.8 g/dl (32.0-35.9); MEAN CELL VOLUME 95.4 fl (80-96); MEAN PLT VOLUME 10.1 fl (7.5-11.1); MONO % 4.9 % (3.8-10.2); NEUT % 83.4 % (42.8-82.8); PLATELET COUNT 205 K/MM3 (134-434); RBC 5.07 M/mm3 (4.00-5.60); RDW 16.2 % (11.9-15.9)
[2020-01-09 11:58] LABS: INR 1.26 (0.83-1.09); PROTHROMBIN TIME (PATIENT) 15.1 SEC (9.7-13.0)
[2020-01-09 12:08] LABS: POTASSIUM 3.6 mmol/L (3.5-5.1)
[2020-01-09 12:12] LABS: BLOOD UREA NITROGEN 17.7 mg/dL (7-18)
[2020-01-09 12:13] LABS: MAGNESIUM 1.9 mg/dL (1.8-2.4)
[2020-01-09 12:16] LABS: CREATININE 1.5 mg/dL (0.55-1.3); PHOSPHOROUS 3.3 mg/dL (2.5-4.9)
[2020-01-09 12:17] LABS: BILIRUBIN,TOTAL 2.7 mg/dL (0.2-1); TOT PROT 6.7 g/dl (6.4-8.2)
[2020-01-09] MEDS: SPIRONOLACTONE 25 MG TABLET PO SCH (22:31)
[2020-01-09] MEDS: CARVEDILOL 3.125 MG TABLET (FP) PO SCH (22:31)
[2020-01-10] MEDS: INSULIN SLIDING SCALE (NOVOLOG) 1 VIAL SQ SCH ×4 (07:01→21:21)
[2020-01-10 07:37] LABS: BASO % 0.8 % (0-2.0); EOS % 2.1 % (0-4.5); HEMATOCRIT 44.1 % (35.4-49); HEMOGLOBIN 14.5 GM/dL (11.7-16.9); LYMPH % 12.4 % (8-40); MCH 31.2 pg (25.7-33.7); MCHC 32.8 g/dl (32.0-35.9); MEAN PLT VOLUME 10.2 fl (7.5-11.1); MONO % 6.1 % (3.8-10.2); NEUT % 78.6 % (42.8-82.8); PLATELET COUNT 184 K/MM3 (134-434); RBC 4.64 M/mm3 (4.00-5.60); RDW 15.8 % (11.9-15.9); WHITE BLOOD COUNT 6.5 K/mm3 (4.0-10.0)
[2020-01-10 07:44] LABS: INR 1.26 (0.83-1.09); PROTHROMBIN TIME (PATIENT) 15.2 SEC (9.7-13.0)
[2020-01-10 07:57] LABS: POTASSIUM 3.8 mmol/L (3.5-5.1)
[2020-01-10 07:59] LABS: ALBUMIN 2.8 g/dl (3.4-5.0); CALCIUM 9.2 mg/dL (8.5-10.1); MAGNESIUM 1.7 mg/dL (1.8-2.4)
[2020-01-10 08:00] LABS: BLOOD UREA NITROGEN 17.4 mg/dL (7-18)
[2020-01-10 08:02] LABS: CREATININE 1.3 mg/dL (0.55-1.3)
[2020-01-10 08:05] LABS: BILIRUBIN,TOTAL 2.9 mg/dL (0.2-1)
[2020-01-10] MEDS ORDERED: LISINOPRIL 20 MG TABLET PO SCH (10:00)
[2020-01-10] MEDS ORDERED: PT OWN MED DRAWER 7, Y5N ONE (10:26)
[2020-01-10] MEDS: TAMSULOSIN HCL 0.4 MG CAP PO SCH (10:29)
[2020-01-10] MEDS: CARVEDILOL 3.125 MG TABLET (FP) PO SCH (10:29)
[2020-01-10] MEDS: PANTOPRAZOLE 40 MG TABLET PO SCH (10:29)
[2020-01-10] MEDS: SPIRONOLACTONE 25 MG TABLET PO SCH (10:29)
[2020-01-10] MEDS: CLOPIDOGREL BISULFATE 75 MG TABLET (FP) PO SCH (10:29)
[2020-01-10] MEDS: FUROSEMIDE 40 MG/4 ML INJECTABLE VIAL IVPUSH SCH (10:31)
[2020-01-10] MEDS: ASPIRIN COATED 81 MG TABLET.EC PO SCH (10:31)
[2020-01-10] MEDS ORDERED: MAGNESIUM OXIDE 400 MG TABLET (FP) PO ONE (12:50)
[2020-01-10] MEDS ORDERED: LISINOPRIL 5 MG TABLET PO SCH (13:00)
[2020-01-10] MEDS ORDERED: FUROSEMIDE 40 MG/4 ML INJECTABLE VIAL IVPUSH ONE (13:10)
[2020-01-10] MEDS ORDERED: LISINOPRIL 5 MG TABLET PO ONE (13:40)
[2020-01-10] MEDS: ROSUVASTATIN CA 20 MG TABLET (FP) PO SCH (21:19)
[2020-01-10] MEDS: HEPARIN NA (PORCINE) 5,000 UNITS/ML 1ML VIAL SQ SCH (21:19)
[2020-01-10] MEDS: CARVEDILOL 12.5 MG TABLET (FP) PO SCH (21:19)
[2020-01-11] MEDS: INSULIN SLIDING SCALE (NOVOLOG) 1 VIAL SQ SCH ×4 (06:04→21:34)
[2020-01-11] MEDS: FUROSEMIDE 40 MG/4 ML INJECTABLE VIAL IVPUSH SCH ×2 (06:04→13:26)
[2020-01-11 06:59] LABS: BASO % 1.1 % (0-2.0); EOS % 2.6 % (0-4.5); HEMATOCRIT 46.3 % (35.4-49); HEMOGLOBIN 14.8 GM/dL (11.7-16.9); LYMPH % 15.5 % (8-40); MCH 30.3 pg (25.7-33.7); MEAN CELL VOLUME 94.7 fl (80-96); MEAN PLT VOLUME 10.3 fl (7.5-11.1); MONO % 8.4 % (3.8-10.2); NEUT % 72.4 % (42.8-82.8); PLATELET COUNT 184 K/MM3 (134-434); RBC 4.89 M/mm3 (4.00-5.60); RDW 15.9 % (11.9-15.9); WHITE BLOOD COUNT 5.6 K/mm3 (4.0-10.0)
[2020-01-11 07:21] LABS: POTASSIUM 3.3 mmol/L (3.5-5.1)
[2020-01-11 07:24] LABS: CALCIUM 8.7 mg/dL (8.5-10.1)
[2020-01-11 07:25] LABS: BLOOD UREA NITROGEN 16.7 mg/dL (7-18); INR 1.2 (0.83-1.09); MAGNESIUM 1.9 mg/dL (1.8-2.4); PROTHROMBIN TIME (PATIENT) 14.7 SEC (9.7-13.0)
[2020-01-11 07:27] LABS: ALBUMIN 2.8 g/dl (3.4-5.0)
[2020-01-11 07:29] LABS: CREATININE 1.2 mg/dL (0.55-1.3)
[2020-01-11 07:31] LABS: BILIRUBIN,TOTAL 3.2 mg/dL (0.2-1)
[2020-01-11 07:32] LABS: TOT PROT 5.8 g/dl (6.4-8.2)
[2020-01-11] MEDS ORDERED: POTASSIUM CHLORIDE TABS 20 MEQ TABLET.ER (FP) PO ONE (08:30)
[2020-01-11] MEDS: HEPARIN NA (PORCINE) 5,000 UNITS/ML 1ML VIAL SQ SCH ×2 (09:12→21:34)
[2020-01-11] MEDS: TAMSULOSIN HCL 0.4 MG CAP PO SCH (09:13)
[2020-01-11] MEDS: CLOPIDOGREL BISULFATE 75 MG TABLET (FP) PO SCH (09:13)
[2020-01-11] MEDS: PANTOPRAZOLE 40 MG TABLET PO SCH (09:13)
[2020-01-11] MEDS: LISINOPRIL 10 MG TABLET PO SCH (09:13)
[2020-01-11] MEDS: CARVEDILOL 12.5 MG TABLET (FP) PO SCH ×2 (09:13→21:34)
[2020-01-11] MEDS: ASPIRIN COATED 81 MG TABLET.EC PO SCH (09:13)
[2020-01-11] MEDS: SPIRONOLACTONE 25 MG TABLET PO SCH (09:13)
[2020-01-11] MEDS: ROSUVASTATIN CA 20 MG TABLET (FP) PO SCH (21:34)
[2020-01-12] MEDS: FUROSEMIDE 40 MG/4 ML INJECTABLE VIAL IVPUSH SCH ×2 (05:45→13:50)
[2020-01-12] MEDS: INSULIN SLIDING SCALE (NOVOLOG) 1 VIAL SQ SCH ×4 (06:46→22:01)
[2020-01-12 07:09] LABS: EOS % 2.2 % (0-4.5); HEMATOCRIT 47.8 % (35.4-49); HEMOGLOBIN 15.7 GM/dL (11.7-16.9); INR 1.16 (0.83-1.09); MCH 30.8 pg (25.7-33.7); MCHC 32.8 g/dl (32.0-35.9); MEAN PLT VOLUME 10.6 fl (7.5-11.1); MONO % 8.4 % (3.8-10.2); NEUT % 65.4 % (42.8-82.8); PLATELET COUNT 189 K/MM3 (134-434); RBC 5.08 M/mm3 (4.00-5.60); RDW 16.2 % (11.9-15.9); WHITE BLOOD COUNT 5.3 K/mm3 (4.0-10.0)
[2020-01-12 07:28] LABS: POTASSIUM 3.3 mmol/L (3.5-5.1)
[2020-01-12 07:34] LABS: ALBUMIN 3.1 g/dl (3.4-5.0); BLOOD UREA NITROGEN 16.1 mg/dL (7-18); CALCIUM 9.7 mg/dL (8.5-10.1); MAGNESIUM 1.9 mg/dL (1.8-2.4)
[2020-01-12 07:37] LABS: CREATININE 1.3 mg/dL (0.55-1.3)
[2020-01-12 07:39] LABS: TOT PROT 6.4 g/dl (6.4-8.2)
[2020-01-12] MEDS: CLOPIDOGREL BISULFATE 75 MG TABLET (FP) PO SCH (09:06)
[2020-01-12] MEDS: ASPIRIN COATED 81 MG TABLET.EC PO SCH (09:07)
[2020-01-12] MEDS: TAMSULOSIN HCL 0.4 MG CAP PO SCH (09:07)
[2020-01-12] MEDS: SPIRONOLACTONE 25 MG TABLET PO SCH (09:07)
[2020-01-12] MEDS: PANTOPRAZOLE 40 MG TABLET PO SCH (09:07)
[2020-01-12] MEDS: CARVEDILOL 12.5 MG TABLET (FP) PO SCH ×2 (09:07→22:01)
[2020-01-12] MEDS: LISINOPRIL 10 MG TABLET PO SCH (09:07)
[2020-01-12] MEDS: HEPARIN NA (PORCINE) 5,000 UNITS/ML 1ML VIAL SQ SCH ×2 (09:08→22:00)
[2020-01-12] MEDS ORDERED: INSULIN SLIDING SCALE (NOVOLOG) 1 VIAL SQ ONE (12:33)
[2020-01-12] MEDS ORDERED: LISINOPRIL 10 MG TABLET PO ONE (12:53)
[2020-01-12] MEDS: ROSUVASTATIN CA 20 MG TABLET (FP) PO SCH ×2 (22:00→22:09)
[2020-01-13] MEDS: INSULIN SLIDING SCALE (NOVOLOG) 1 VIAL SQ SCH ×4 (06:20→21:44)
[2020-01-13] MEDS: FUROSEMIDE 40 MG/4 ML INJECTABLE VIAL IVPUSH SCH ×2 (06:44→13:10)
[2020-01-13 07:19] LABS: BASO % 1.4 % (0-2.0); HEMOGLOBIN 15.1 GM/dL (11.7-16.9); LYMPH % 17.2 % (8-40); MCHC 32.9 g/dl (32.0-35.9); MEAN CELL VOLUME 94.2 fl (80-96); MEAN PLT VOLUME 10.5 fl (7.5-11.1); MONO % 11.3 % (3.8-10.2); NEUT % 67.1 % (42.8-82.8); PLATELET COUNT 192 K/MM3 (134-434); RBC 4.89 M/mm3 (4.00-5.60); RDW 15.6 % (11.9-15.9); WHITE BLOOD COUNT 5.3 K/mm3 (4.0-10.0)
[2020-01-13 07:24] LABS: INR 1.2 (0.83-1.09); PROTHROMBIN TIME (PATIENT) 14.7 SEC (9.7-13.0)
[2020-01-13 07:36] LABS: POTASSIUM 3.4 mmol/L (3.5-5.1)
[2020-01-13 07:43] LABS: ALBUMIN 2.8 g/dl (3.4-5.0)
[2020-01-13 07:44] LABS: BLOOD UREA NITROGEN 18.2 mg/dL (7-18); CALCIUM 8.4 mg/dL (8.5-10.1)
[2020-01-13 07:45] LABS: MAGNESIUM 1.7 mg/dL (1.8-2.4)
[2020-01-13 07:46] LABS: CREATININE 1.3 mg/dL (0.55-1.3)
[2020-01-13 07:48] LABS: BILIRUBIN,TOTAL 2.5 mg/dL (0.2-1); TOT PROT 6.4 g/dl (6.4-8.2)
[2020-01-13] MEDS ORDERED: POTASSIUM CHLORIDE TABS 20 MEQ TABLET.ER (FP) PO ONE (08:05)
[2020-01-13] MEDS ORDERED: MAGNESIUM OXIDE 400 MG TABLET (FP) PO ONE (08:06)
[2020-01-13] MEDS: LISINOPRIL 10 MG TABLET PO SCH (09:59)
[2020-01-13] MEDS: CLOPIDOGREL BISULFATE 75 MG TABLET (FP) PO SCH (10:00)
[2020-01-13] MEDS: HEPARIN NA (PORCINE) 5,000 UNITS/ML 1ML VIAL SQ SCH ×3 (10:00→23:21)
[2020-01-13] MEDS: ASPIRIN COATED 81 MG TABLET.EC PO SCH (10:00)
[2020-01-13] MEDS: PANTOPRAZOLE 40 MG TABLET PO SCH (10:00)
[2020-01-13] MEDS: SPIRONOLACTONE 25 MG TABLET PO SCH (10:00)
[2020-01-13] MEDS: CARVEDILOL 12.5 MG TABLET (FP) PO SCH ×3 (10:00→21:47)
[2020-01-13] MEDS: TAMSULOSIN HCL 0.4 MG CAP PO SCH (10:00)
[2020-01-13] MEDS: ROSUVASTATIN CA 20 MG TABLET (FP) PO SCH (21:44)
[2020-01-14] MEDS: FUROSEMIDE 40 MG/4 ML INJECTABLE VIAL IVPUSH SCH ×2 (06:15→06:22)
[2020-01-14] MEDS: INSULIN SLIDING SCALE (NOVOLOG) 1 VIAL SQ SCH (06:18)
[2020-01-14 08:57] VITALS: BP 122/71; PULSE 67; TEMP 98.1
[2020-01-14] MEDS: PANTOPRAZOLE 40 MG TABLET PO SCH (09:28)
[2020-01-14] MEDS: CARVEDILOL 12.5 MG TABLET (FP) PO SCH (09:28)
[2020-01-14] MEDS: SPIRONOLACTONE 25 MG TABLET PO SCH (09:28)
[2020-01-14] MEDS: CLOPIDOGREL BISULFATE 75 MG TABLET (FP) PO SCH (09:29)
[2020-01-14] MEDS: LISINOPRIL 10 MG TABLET PO SCH (09:29)
[2020-01-14] MEDS: ASPIRIN COATED 81 MG TABLET.EC PO SCH (09:29)
[2020-01-14] MEDS: TAMSULOSIN HCL 0.4 MG CAP PO SCH (09:29)
[2020-01-14] MEDS: HEPARIN NA (PORCINE) 5,000 UNITS/ML 1ML VIAL SQ SCH (09:30)
[2020-01-14 11:08] LABS: BASO % 1.5 % (0-2.0); EOS % 3.6 % (0-4.5); HEMATOCRIT 47.8 % (35.4-49); HEMOGLOBIN 15.8 GM/dL (11.7-16.9); LYMPH % 16.7 % (8-40); MCH 31.3 pg (25.7-33.7); MCHC 33.1 g/dl (32.0-35.9); MEAN CELL VOLUME 94.6 fl (80-96); MEAN PLT VOLUME 10.5 fl (7.5-11.1); MONO % 9.3 % (3.8-10.2); NEUT % 68.9 % (42.8-82.8); PLATELET COUNT 198 K/MM3 (134-434); RBC 5.05 M/mm3 (4.00-5.60); RDW 15.8 % (11.9-15.9); WHITE BLOOD COUNT 5.2 K/mm3 (4.0-10.0)
[2020-01-14 11:15] LABS: INR 1.13 (0.83-1.09); PROTHROMBIN TIME (PATIENT) 13.9 SEC (9.7-13.0)
[2020-01-14 11:27] LABS: POTASSIUM 3.6 mmol/L (3.5-5.1)
[2020-01-14 11:32] LABS: BLOOD UREA NITROGEN 19.9 mg/dL (7-18); CALCIUM 9.3 mg/dL (8.5-10.1)
[2020-01-14 11:33] LABS: MAGNESIUM 2.1 mg/dL (1.8-2.4)
[2020-01-14 11:36] LABS: CREATININE 1.3 mg/dL (0.55-1.3)
[2020-01-14 11:37] LABS: BILIRUBIN,TOTAL 2.2 mg/dL (0.2-1); TOT PROT 6.6 g/dl (6.4-8.2)
== END 2020-01-14 11:07 | disposition short-term general hospital (02) | DRG 292 ==
LOC: JER 21:39 → JERBED 23:57 → OBSVTOIN 23:57 → J4S 01-09 21:10
PROVIDERS: ADMIT Hospitalist; ATTEND Nurse Practitioner Acute Care
DX: I11.0 Hypertensive heart disease with heart failure (principal); L97.808 Non-pressure chronic ulcer of other part of unspecified lower leg with other specified severity; I50.23 Acute on chronic systolic (congestive) heart failure; I25.10 Atherosclerotic heart disease of native coronary artery without angina pectoris; E11.9 Type 2 diabetes mellitus without complications; J44.9 Chronic obstructive pulmonary disease, unspecified; I44.7 Left bundle-branch block, unspecified; E66.9 Obesity, unspecified; Z68.29 Body mass index [BMI] 29.0-29.9, adult; R94.31 Abnormal electrocardiogram [ECG] [EKG]; E11.51 Type 2 diabetes mellitus with diabetic peripheral angiopathy without gangrene; N40.1 Benign prostatic hyperplasia with lower urinary tract symptoms; R39.16 Straining to void; E80.6 Other disorders of bilirubin metabolism; R60.9 Edema, unspecified; E11.622 Type 2 diabetes mellitus with other skin ulcer; Z95.5 Presence of coronary angioplasty implant and graft; Z88.0 Allergy status to penicillin; Z03.818 Encounter for observation for suspected exposure to other biological agents ruled out; Z78.9 Other specified health status
CPT/HCPCS: 36415; 71045-TC-FY; 80053; 80061; 82248; 82550; 82962; 83036; 83721; 83735; 83880; 84100; 84484; 85025; 85610; 85730; 93005; 93010; 93970-TC; 99285-25; C9803; J1644; U0003